=== PATIENT | male | born 1945 | race American Indian/Alaskan Native ===

== ENCOUNTER 2018-04-04 05:55 | Inpatient (IN) | payer MEDICARE, OTHER ==
[2018-03-30 09:48] LABS: Eosinophils % (Auto) 1.2 % (0.0-4.3); Hematocrit 45.4 % (35.5-45.6); Lymphocytes # (Auto) 1.4 K/mm3 (1.2-5.4); Lymphocytes % (Auto) 34.2 % (13.4-35.0); Mean Corpuscular HGB Conc 33 % (32-34); Mean Corpuscular Volume 84 fl (84-94); Monocytes # (Auto) 0.4 K/mm3 (0.0-0.8); Monocytes % (Auto) 9.8 % (0.0-7.3); Platelet Count 181 K/mm3 (140-440); Red Blood Count 5.38 M/mm3 (3.65-5.03); Red Cell Distribution Width 13.7 % (13.2-15.2)
[2018-03-30 09:58] LABS: INR 0.81 (0.87-1.13)
[2018-03-30 09:59] LABS: Partial Thromboplastin Time 27.5 Sec. (24.2-36.6)
[2018-03-30 10:06] LABS: Alanine Aminotransferase 29 units/L (7-56); Albumin 4.2 g/dL (3.9-5); BUN/Creatinine Ratio 13; Blood Urea Nitrogen 13 mg/dL (9-20); Calcium 8.8 mg/dL (8.4-10.2); Hemolysis Index 39
[~2018-04-04 05:55] MED LIST: ANCEF/STERILE WATER 2 GM/20 ML IV NR
[2018-04-04] MEDS ORDERED: NACL 0.9% 1000 ML 1,000 ML ONE ×2 (06:10→13:18)
[2018-04-04] MEDS ORDERED: NACL BACTERIOSTATIC INFILTRATI ONE (06:10)
[2018-04-04] MEDS ORDERED: NACL 0.9% 1000 ML 1,000 ML IV SCH (07:00)
[2018-04-04] MEDS ORDERED: SUBLIMAZE IV NR (07:02)
--- NOTE | 2018-04-04 07:11 | Anesthesia Day of Surgery ---
Anesthesia Day of Surgery - Day of Surgery Patient Examined: Yes Patient H&P Reviewed: Yes Patient is NPO: Yes
--- NOTE | 2018-04-04 07:11 | Anesthesia Consultation ---
Anesthesia Consult and Med Hx Date of service: 04/04/18 - Airway Anesthetic Teeth Evaluation: Good ROM Head & Neck: Adequate Mental/Hyoid Distance: Adequate Mallampati Class: Class II Intubation Access Assessment: Good - Pulmonary Exam CTA: Yes - Cardiac Exam Cardiac Exam: No Murmur - Pre-Operative Health Status ASA Pre-Surgery Classification: ASA3 Proposed Anesthetic Plan: General Nerve Block: TAP - Pulmonary Hx Smoking: Yes (STOPPED 1972 , SMOKED X 10 YRS) Hx Sleep Apnea: No (REBEKA PRE SCREEN HIGH RISK) - Cardiovascular System Hx Hypertension: Yes - Central Nervous System Hx Back Pain: Yes - Endocrine Hx Non-Insulin Dependent Diabetes: Yes
[2018-04-04] MEDS ORDERED: DILAUDID ONE (07:27)
[2018-04-04] MEDS ORDERED: DIPRIVAN 10 MG/ML IV ONE (07:27)
[2018-04-04] MEDS ORDERED: ZEMURON IV ONE (07:30)
[2018-04-04] MEDS ORDERED: XYLOCAINE MPF 2% ONE (07:30)
[2018-04-04] MEDS ORDERED: MARCAINE-EPI 0.5%-1:200,000 INFILTRATI ONE (07:37)
[2018-04-04] MEDS ORDERED: DECADRON ONE (07:38)
[2018-04-04] MEDS ORDERED: XYLOCAINE 1% 20 mL ONE (07:38)
[2018-04-04] MEDS ORDERED: CALCIUM CHLORIDE IV ONE (07:56)
[2018-04-04] MEDS ORDERED: THROMBIN (BOVINE) TP ONE (07:56)
[2018-04-04] MEDS ORDERED: ACD-A 500 ML IV ONE (07:56)
[2018-04-04] MEDS ORDERED: VERSED IV NR (08:00)
[2018-04-04] MEDS ORDERED: PEPCID IV NR (08:00)
[2018-04-04] MEDS ORDERED: NEURONTIN PO NR (08:00)
[2018-04-04] MEDS ORDERED: METHYLENE BLUE ONE (09:44)
[2018-04-04] MEDS ORDERED: ZOFRAN ONE (10:36)
[2018-04-04] MEDS ORDERED: NEO SYNEPHRINE/NS Syringe(OR USE) IV ONE (10:36)
[2018-04-04] MEDS ORDERED: ROBINUL ONE (10:36)
[2018-04-04] MEDS ORDERED: BLOXIVERZ ONE (10:36)
[2018-04-04] MEDS ORDERED: ADRENALIN IV PRN (11:00)
[2018-04-04] MEDS ORDERED: D50W (25GM) Syringe IV PRN ×2 (12:00→19:37)
[2018-04-04] MEDS ORDERED: ZOFRAN IV PRN (12:00)
[2018-04-04] MEDS ORDERED: AMBIEN PO PRN (12:00)
[2018-04-04] MEDS ORDERED: NARCAN 0.4 MG/1 ML IV PRN (12:00)
[2018-04-04] MEDS ORDERED: MORPHINE IV PRN (12:00)
[2018-04-04] MEDS ORDERED: NORCO 5/325 PO PRN (12:00)
--- NOTE | 2018-04-04 12:00 | Short Stay Summary ---
Short Stay Documentation Date of service: 04/04/18 - History H&P: obtained from office - Allergies and Medications Current Medications: Allergies BEE STINGS Adverse Reaction (Uncoded 02/07/18 08:28) Shortness of Breath Home Medications Medication Instructions Recorded Confirmed Last Taken Type EPINEPHrine 1 dose SUB-Q PRN PRN 03/23/18 03/23/18 Unknown History Empagliflozin [Jardiance] 25 mg PO DAILY 03/23/18 04/04/18 04/02/18 21:00 History Losartan Potassium 100 mg PO DAILY 03/23/18 04/04/18 04/02/18 21:00 History amLODIPine [Norvasc] 10 mg PO DAILY 03/23/18 04/04/18 04/02/18 21:00 History metFORMIN XR [Glucophage XR] 500 mg PO DAILY 03/23/18 04/04/18 04/02/18 21:00 History Active Medications Cefazolin Sodium (Ancef/Sterile Water 2 Gm/20 Ml) 2 gm IV PREOP NR Stop: 04/04/18 23:59 Celecoxib (Celebrex) 200 mg PO PREOP NR Stop: 04/04/18 15:00 Last Admin: 04/04/18 07:40 Dose: 200 mg Documented by: Famotidine (Pepcid) 20 mg IV PREOP NR Stop: 04/04/18 15:00 Last Admin: 04/04/18 07:30 Dose: 20 mg Documented by: Fentanyl (Sublimaze) 100 mcg IV ONCE NR Stop: 04/04/18 15:00 Last Admin: 04/04/18 07:43 Dose: 50 mcg Documented by: Gabapentin (Neurontin) 600 mg PO PREOP NR Stop: 04/04/18 15:00 Last Admin: 04/04/18 07:40 Dose: 600 mg Documented by: Sodium Chloride (Nacl 0.9% 1000 Ml) 1,000 mls @ 75 mls/hr IV DIRECT [facility] Last Admin: 04/04/18 06:50 Dose: 75 mls/hr Documented by: Midazolam HCl (Versed) 2 mg IV PREOP NR Stop: 04/04/18 23:59 Last Admin: 04/04/18 07:43 Dose: 2 mg Documented by: - Brief post op/procedure progress note Date of procedure: 04/04/18 Pre-op diagnosis: prostate ca Post-op diagnosis: same Procedure: robotic prostatectomy Anesthesia: SONIAA Surgeon: INESSA ANDERSON Estimated blood loss: other (500cc) Pathology: list (prostate) Specimen disposition: to lab Condition: stable - Hospital course Hospital course: bactrim,norco,post op info on chart maciol removed resting well ok to dc home if ok with hospitalist service f/u 1 wwk - Disposition Condition at discharge: Stable Short Stay Discharge Plan Follow up with: PANCHO PRADO JR, MD [Primary Care Provider] - 7 Days
[2018-04-04] MEDS ORDERED: EPINEPHRINE SUB-Q PRN (12:06)
--- NOTE | 2018-04-04 12:51 | Operative Report ---
PREOPERATIVE DIAGNOSES: Prostate cancer, Dodie 3+4, PSA 25. POSTOPERATIVE DIAGNOSES: Prostate cancer, Dodie 3+4, PSA 25. PROCEDURE: Robotic-assisted laparoscopic prostatectomy. SURGEON: Harvinder Subramanian MD ANESTHESIA: General. PROJECT/PRODUCTION MANAGER IMAGING: Sangeeta Ball. ESTIMATED BLOOD LOSS: 500 mL. FLUIDS: Crystalloid plus Cell Saver 250. DRAINS: Jass-Ramirez drain x 1. COMPLICATIONS: No complications. INDICATIONS: This patient is a 72-year-old gentleman referred by Dr. Baltazar Stoll for evaluation of an elevated PSA of 17. Initial biopsy was negative in 2017. It went up to a PSA of 25, fusion biopsy with Dr. Hernandez revealed a 3+4 adenocarcinoma of the prostate, 5 of 12 cores. Bone scan, CT scan was negative. We discussed options. The patient agreed to proceed with surgical intervention. DESCRIPTION OF PROCEDURE: The patient was taken to the operative suite, placed in a supine position. After adequate general anesthesia, he was prepped and draped in a sterile fashion. Andino catheter was placed on the operative field, was placed in a modified dorsal lithotomy position. Supraumbilical 1 cm incision was made. Towel clips were placed. Veress needle was placed. Drop test was performed, which was negative. CO2 insufflation was performed after opening pressure of 2 cm of water. Insufflation to 15 cm of water was performed without difficulty. Abdominal wall was marked from the pubic symphysis 15 cm cephalad, 9 cm lateral, additional 9 cm lateral was used for the robotic ports. A 0-degree lens was used and placed under direct vision at the supraumbilical incision. No signs of intraabdominal injury, no signs of spread. Under direct vision, the robotic ports were placed, 8 mm robotic ports on the left side and the right side as well as right-sided 10 mm helper port and a 5 mm helper port. The patient was then placed in exaggerated Trendelenburg position. Robotic cart was docked between the legs without difficulty. Robotic arms were engaged. The patient had adhesions on the left side of the colon, which was taken down without difficulty. He had a significant amount of adipose tissue, we had to use a fan to retract the rectum. Second arch was scored posteriorly exposing the seminal vesicles and vas deferens. Dissection to the apex of the prostate was performed without difficulty. The vas deferens were transected bilaterally. Seminal vesicles were dissected out. Attention was then taken to the abdominal wall, lateral to the abdominal wall was scored with cautery, dropped in the bladder flap and the flap exposed the pubic rami. Dorsal vein complex was controlled with a 45 mm stapler. It was bulky and had difficult to get the fat off and therefore it had to be oversewn with 2-0 Vicryl in a [id number] fashion with adequate hemostasis. Endopelvic fascia was opened bilaterally without difficulty. Anterior bladder neck was transected exposing the Andino catheter, was deflated and used for anterior traction. Posterior bladder neck was dissected, also indigo carmine was administered intravenously to help identify the ureteral orifices, which were uninjured. So, the seminal vesicles and vas deferens were pulled out anteriorly. Lateral pedicles were identified. A 65 mm vascular stapler was fired bilaterally for control of the lateral pedicles. Dissection was taken to the apex of the prostate and then the urethra was transected distally. Prostate was removed from the pelvis and placed in the EndoCatch bag and retracted laterally. Copious irrigation was performed. Adequate hemostasis achieved. A 12 o'clock helper stitch using 2-0 Vicryl at 12 o'clock position of the bladder neck. bladder neck reconstruction at the 5 and 7 o'clock positions using 2-0 Vicryl in interrupted fashion. A V-Loc stitch was placed at the 6 o'clock position of the bladder neck corresponding aspect of the urethra running stitch bilaterally was performed. A new Andino catheter was placed without difficulty into the bladder. Anastomotic stitch was cinched down, irrigation, minimal clot in the bladder, no leak. V-Loc stitch was then placed at the posterior aspect of the abdominal wall to aid with incontinence. Copious irrigation was performed. Adequate hemostasis achieved. Platelet rich plasma and platelet poor plasma was injected around the anastomosis, plasma membrane was also placed directly on the anastomosis. Jass-Ramirez drain was brought out through the left-sided port, secured into the skin with 2-0 Vicryl in interrupted fashion. The ports were removed under direct vision. The EndoCatch bag was transferred to the supraumbilical incision which was extended to allow removal. A 0 Vicryl [id number] stitch was placed and the supraumbilical incision was closed. No herniation. Skin was closed with 4-0 Monocryl in interrupted fashion. A Andino catheter was folded over and tied to the side port to prevent removal. The patient was extubated and taken to the recovery room in stable condition, will be observed overnight and go home with Bactrim and [place]. Sangeeta Ball was present throughout the procedure at the bedside to facilitate surgical dissection. JOB# [id number] JULEE/NTS
[2018-04-04 13:23] LABS: Hematocrit 39.1 % (35.5-45.6); Hemoglobin 12.9 gm/dl (11.8-15.2); Mean Corpuscular HGB Conc 33 % (32-34); Mean Corpuscular Volume 85 fl (84-94); Platelet Count 168 K/mm3 (140-440); Red Blood Count 4.61 M/mm3 (3.65-5.03); Red Cell Distribution Width 13.4 % (13.2-15.2)
[2018-04-04 13:38] LABS: BUN/Creatinine Ratio 13; Blood Urea Nitrogen 13 mg/dL (9-20); Calcium 7.5 mg/dL (8.4-10.2); Hemolysis Index 5
[2018-04-04 14:38] LABS: Band Neutrophils # (Manual) 1.1 K/mm3; Basophils % (Manual) 0 % (0.0-1.8); Eosinophils % (Manual) 0 % (0.0-4.3); RBC Morphology Normal; Total Cells Counted 100
[2018-04-04] MEDS: ANCEF/NS 1 GM/50 ML 1 GM/50 ML BAG IV SCH ×2 (15:15→21:30)
[2018-04-04] MEDS: NACL 0.9% 1000 ML 1,000 ML IV SCH ×2 (15:16→18:24)
[2018-04-04] MEDS ORDERED: HumuLIN R SUB-Q SCH (16:30)
--- NOTE | 2018-04-04 19:27 | Consultation ---
History of Present Illness - Reason for Consult Consult date: 04/04/18 Diabetes, HTN Requesting physician: INESSA SUBRAMANIAN - History of Present Illness 72 YO Male with Obesity, CaP, HTN, DM. Consult placed by Dr. Subramanian for medical management. Pt is S/P Prostatectomy. Pt resting comfortably in bed. Pt denies fever, chills, CP, Palpitations, NVD, Shortness of Breath, skin rash, or recent ill contacts. No reported nursing events. Pt seen and evaluated postoperatively upon arrival to his room. Past History Past Medical History: cancer, diabetes, hypertension Past Surgical History: Other (Prostatectomy) Social history: , lives with family. denies: smoking, alcohol abuse, prescription drug abuse Family history: diabetes, hypertension Medications and Allergies Allergies Allergy/AdvReac Type Severity Reaction Status Date / Time BEE STINGS AdvReac Shortness Uncoded 02/07/18 08:28 of Breath Home Medications Medication Instructions Recorded Confirmed Last Taken Type EPINEPHrine 1 dose SUB-Q PRN PRN 03/23/18 03/23/18 Unknown History Empagliflozin [Jardiance] 25 mg PO DAILY 03/23/18 04/04/18 04/02/18 21:00 History Losartan Potassium 100 mg PO DAILY 03/23/18 04/04/18 04/02/18 21:00 History amLODIPine [Norvasc] 10 mg PO DAILY 03/23/18 04/04/18 04/02/18 21:00 History metFORMIN XR [Glucophage XR] 500 mg PO DAILY 03/23/18 04/04/18 04/02/18 21:00 History Active Meds: Active Medications Acetaminophen/Hydrocodone Bitart ([place]edham 5/325) 2 each PO Q4H PRN PRN Reason: Pain, Moderate (4-6) Amlodipine Besylate (Norvasc) 10 mg PO DAILY [facility] Cefazolin Sodium (Ancef/Sterile Water 2 Gm/20 Ml) 2 gm IV PREOP NR Stop: 04/04/18 23:59 Dextrose (D50w (25gm) Syringe) 50 ml IV PRN PRN PRN Reason: Hypoglycemia Epinephrine (Adrenalin) 1 mg IV PRN PRN PRN Reason: Res Rate </= 8 or 02 SAT < 92% Stop: 04/04/18 23:59 Sodium Chloride (Nacl 0.9% 1000 Ml) 1,000 mls @ 75 mls/hr IV DIRECT SADAF Last Admin: 04/04/18 06:50 Dose: 75 mls/hr Documented by: Cefazolin Sodium (Ancef/Ns 1 Gm/50 Ml) 1 gm in 50 mls @ 100 mls/hr IV Q8H SAD[facility]; Protocol Stop: 04/04/18 22:29 Last Admin: 04/04/18 15:15 Dose: 100 mls/hr Documented by: Sodium Chloride (Nacl 0.9% 1000 Ml) 1,000 mls @ 100 mls/hr IV DIRECT SADAF Last Admin: 04/04/18 18:24 Dose: 100 mls/hr Documented by: Insulin Human Regular (Humulin R) 0 units SUB-Q ACHS SAD[facility]; Protocol Last Admin: 04/04/18 18:23 Dose: 3 units Documented by: Losartan Potassium (Cozaar) 100 mg PO QDAY [facility] Metformin HCl (Glucophage Xr) 500 mg PO DAILY [facility] Midazolam HCl (Versed) 2 mg IV PREOP NR Stop: 04/04/18 23:59 Last Admin: 04/04/18 07:43 Dose: 2 mg Documented by: Miscellaneous Medication (Empagliflozin [Jardiance]) 25 mg PO DAILY [facility] Morphine Sulfate (Morphine) 4 mg IV Q4H PRN PRN Reason: Pain , Severe (7-10) Naloxone HCl (Narcan 0.4 Mg/1 Ml) 0.1 mg IV Q2MIN PRN PRN Reason: Res Rate </= 8 or 02 SAT < 92% Ondansetron HCl (Zofran) 4 mg IV Q8H PRN PRN Reason: Nausea And Vomiting Zolpidem Tartrate (Ambien) 5 mg PO QHS PRN PRN Reason: Sleep Review of Systems Constitutional: no weight loss, no chills Ears, nose, mouth and throat: no ear pain, no ear discharge, no tinnitis, no decreased hearing Cardiovascular: no chest pain, no orthopnea, no palpitations, no rapid/irregular heart beat Respiratory: no cough, no cough with sputum, no excessive sputum, no hemoptysis Gastrointestinal: diarrhea, no abdominal pain, no nausea, no vomiting Genitourinary Male: no dysuria, no flank pain, no nocturia Rectal: no pain, no hemorrhoids Musculoskeletal: no neck stiffness, no neck pain, no shooting arm pain, no hot joints Integumentary: no rash, no redness, no wounds, no boils Neurological: no head injury, no paralysis, no parathesias, no tingling, no syncope Psychiatric: no anxiety, no change in sleep habits, no insomnia, no change in appetite, no suicidal ideation Endocrine: no cold intolerance, no polyphagia, no polydipsia Hematologic/Lymphatic: no easy bruising, no easy bleeding, no lymphadenopathy Allergic/Immunologic: no urticaria, no allergic rhinitis, no wheezing Exam - Constitutional Vitals: Temp Pulse Resp BP Pulse Ox 97.4 F L 100 H 18 93/57 99 04/04/18 15:13 04/04/18 18:26 04/04/18 18:26 04/04/18 18:26 04/04/18 15:13 General appearance: Present: no acute distress, well-nourished - EENT Eyes: Present: PERRL ENT: hearing intact, clear oral mucosa - Neck Neck: Present: supple, normal ROM - Respiratory Respiratory effort: normal Respiratory: bilateral: CTA - Cardiovascular Heart Sounds: Present: S1 & S2. Absent: rub, click - Extremities Extremities: pulses symmetrical, No edema Peripheral Pulses: within normal limits - Abdominal General gastrointestinal: Present: soft, non-tender, non-distended, normal bowel sounds Male genitourinary: Present: normal - Integumentary Integumentary: Present: clear, warm, dry - Musculoskeletal Musculoskeletal: gait normal, strength equal bilaterally - Psychiatric Psychiatric: appropriate mood/affect, intact judgment & insight - Neurologic Neurologic: CNII-XII intact, moves all extremities Results - Labs CBC & Chem 7: 04/05/18 04:14 04/05/18 04:14 Labs: Abnormal lab results 04/04/18 04/04/18 04/04/18 Range/Units 06:43 12:32 13:11 Seg Neuts % (Manual) 81.0 H (40.0-70.0) % Lymphocytes % (Manual) 6.0 L (13.4-35.0) % Seg Neutrophils # Man 8.7 H (1.8-7.7) K/mm3 Lymphocytes # (Manual) 0.6 L (1.2-5.4) K/mm3 Chloride (98-107) mmol/L Glucose (75-100) mg/dL POC Glucose 125 H 165 H (70-105) Calcium (8.4-10.2) mg/dL 04/04/18 04/04/18 Range/Units 13:11 17:39 Seg Neuts % (Manual) (40.0-70.0) % Lymphocytes % (Manual) (13.4-35.0) % Seg Neutrophils # Man (1.8-7.7) K/mm3 Lymphocytes # (Manual) (1.2-5.4) K/mm3 Chloride 108.0 H (98-107) mmol/L Glucose 176 H (75-100) mg/dL POC Glucose 234 H (70-105) Calcium 7.5 L (8.4-10.2) mg/dL Assessment and Plan - Patient Problems (1) HTN (hypertension) Current Visit: Yes Status: Acute Qualifiers: Hypertension type: essential hypertension Qualified Code(s): I10 - Essential (primary) hypertension Plan to address problem: Pt hypotensive upon exam. Systolic in the upper 90's. Hold Antihypertensive therapy for now. IV hydralazine prn for systolic above 155, monitor bp q shift, IVF resuscitation therapy. (2) Diabetes Current Visit: Yes Status: Acute Plan to address problem: Consistent carbohydrate diet, Sliding scale insulin, hold oral medication at this time.
[2018-04-04] MEDS ORDERED: APRESOLINE IV PRN (19:38)
[2018-04-04] MEDS ORDERED: NACL 0.9% 1000 ML 1,000 ML IV ONE (20:35)
[2018-04-05] MEDS: HumaLOG SUB-Q SCH ×5 (02:54→22:36)
[2018-04-05 04:40] LABS: Basophils % (Auto) 0.2 % (0.0-1.8); Hematocrit 30.6 % (35.5-45.6); Hemoglobin 10.2 gm/dl (11.8-15.2); Lymphocytes % (Auto) 18.1 % (13.4-35.0); Mean Corpuscular HGB Conc 33 % (32-34); Mean Corpuscular Volume 84 fl (84-94); Monocytes # (Auto) 0.6 K/mm3 (0.0-0.8); Monocytes % (Auto) 10.1 % (0.0-7.3); Platelet Count 155 K/mm3 (140-440); Red Blood Count 3.64 M/mm3 (3.65-5.03); Red Cell Distribution Width 13.6 % (13.2-15.2)
[2018-04-05 05:02] LABS: BUN/Creatinine Ratio 18; Blood Urea Nitrogen 22 mg/dL (9-20); Calcium 6.9 mg/dL (8.4-10.2); Hemolysis Index 4
[2018-04-05] MEDS: NACL 0.9% 1000 ML 1,000 ML IV SCH ×2 (05:45→12:45)
[2018-04-05] MEDS: NORVASC PO SCH (09:00)
[2018-04-05] MEDS ORDERED: NON-FORMULARY (Losartan Potassium [Losartan Potassium] 100 MG) PO SCH (10:00)
[2018-04-05] MEDS ORDERED: EMPAGLIFLOZIN 25 MG PO SCH (10:00)
[2018-04-05] MEDS ORDERED: GLUCOPHAGE XR PO SCH (10:00)
[2018-04-05] MEDS ORDERED: COZAAR PO SCH (10:00)
--- NOTE | 2018-04-05 15:46 | Progress Note ---
Assessment and Plan Assessment and plan: 72 YO Male with Obesity, CaP, HTN, DM. Consult placed by Dr. Subramanian for medical management. Pt is S/P Prostatectomy. Pt resting comfortably in bed. Pt denies fever, chills, CP, Palpitations, NVD, Shortness of Breath, skin rash, or recent ill contacts. No reported nursing events. Pt seen and evaluated postoperatively upon arrival to his room. Diabetes mellitus - On sliding scale insulin - We will monitor Hypotension - asymptomatic - We'll give him bolus of normal saline - We'll monitor BP If BP is within normal limit; patient can go home. Advised to stop taking blood pressure medications. Status post prostatectomy; management per urology Disposition; per primary, after BP is stabilized. History Interval history: Patient was seen and evaluated this morning, patient didn't have any complaints. Hospitalist Physical - Physical exam Narrative exam: Not in cardiopulmonary distress. The patient is obese. Vital signs as documented. Head exam is unremarkable. No scleral icterus . Neck is without jugular venous distension, thyromegaly, or carotid bruits. Lungs are clear to auscultation. Cardiac exam reveals regular rate and Rhythm. Abdominal exam reveals normal bowel sounds. Extremities are nonedematous and both femoral and pedal pulses are normal. COLLECTIONS SPECIALIST: Alert and oriented 3. No focal weakness. - Constitutional Vitals: Temp Pulse Resp BP Pulse Ox 97.9 F 91 H 18 96/43 98 04/05/18 11:22 04/05/18 11:22 04/05/18 11:22 04/05/18 11:22 04/05/18 11:22 General appearance: Present: no acute distress, well-nourished Results - Labs CBC & Chem 7: 04/05/18 04:14 04/05/18 04:14 Labs: Laboratory Last Values WBC 5.7 K/mm3 (4.5-11.0) 04/05/18 04:14 RBC 3.64 M/mm3 (3.65-5.03) L 04/05/18 04:14 Hgb 10.2 gm/dl (11.8-15.2) L 04/05/18 04:14 Hct 30.6 % (35.5-45.6) L D 04/05/18 04:14 MCV 84 fl (84-94) 04/05/18 04:14 MCH 28 pg (28-32) 04/05/18 04:14 MCHC 33 % (32-34) 04/05/18 04:14 RDW 13.6 % (13.2-15.2) 04/05/18 04:14 Plt Count 155 K/mm3 (140-440) 04/05/18 04:14 Lymph % (Auto) 18.1 % (13.4-35.0) 04/05/18 04:14 Mclean % (Auto) 10.1 % (0.0-7.3) H 04/05/18 04:14 Eos % (Auto) 0.0 % (0.0-4.3) 04/05/18 04:14 Baso % (Auto) 0.2 % (0.0-1.8) 04/05/18 04:14 Lymph # 1.0 K/mm3 (1.2-5.4) L 04/05/18 04:14 Mclean # 0.6 K/mm3 (0.0-0.8) 04/05/18 04:14 Eos # 0.0 K/mm3 (0.0-0.4) 04/05/18 04:14 Baso # 0.0 K/mm3 (0.0-0.1) 04/05/18 04:14 Add Manual Diff Complete 04/04/18 13:11 Total Counted 100 04/04/18 13:11 Seg Neutrophils % 71.6 % (40.0-70.0) H 04/05/18 04:14 Seg Neuts % (Manual) 81.0 % (40.0-70.0) H 04/04/18 13:11 Band Neutrophils % 10.0 % 04/04/18 13:11 Lymphocytes % (Manual) 6.0 % (13.4-35.0) L 04/04/18 13:11 Reactive Lymphs % (Man) 0 % 04/04/18 13:11 Monocytes % (Manual) 3.0 % (0.0-7.3) 04/04/18 13:11 Eosinophils % (Manual) 0 % (0.0-4.3) 04/04/18 13:11 Basophils % (Manual) 0 % (0.0-1.8) 04/04/18 13:11 Metamyelocytes % 0 % 04/04/18 13:11 Myelocytes % 0 % 04/04/18 13:11 Promyelocytes % 0 % 04/04/18 13:11 Blast Cells % 0 % 04/04/18 13:11 Nucleated RBC % Not Reportable 04/04/18 13:11 Seg Neutrophils # 4.1 K/mm3 (1.8-7.7) 04/05/18 04:14 Seg Neutrophils # Man 8.7 K/mm3 (1.8-7.7) H 04/04/18 13:11 Band Neutrophils # 1.1 K/mm3 04/04/18 13:11 Lymphocytes # (Manual) 0.6 K/mm3 (1.2-5.4) L 04/04/18 13:11 Abs React Lymphs (Man) 0.0 K/mm3 04/04/18 13:11 Monocytes # (Manual) 0.3 K/mm3 (0.0-0.8) 04/04/18 13:11 Eosinophils # (Manual) 0.0 K/mm3 (0.0-0.4) 04/04/18 13:11 Basophils # (Manual) 0.0 K/mm3 (0.0-0.1) 04/04/18 13:11 Metamyelocytes # 0.0 K/mm3 04/04/18 13:11 Myelocytes # 0.0 K/mm3 04/04/18 13:11 Promyelocytes # 0.0 K/mm3 04/04/18 13:11 Blast Cells # 0.0 K/mm3 04/04/18 13:11 WBC Morphology Not Reportable 04/04/18 13:11 Hypersegmented Neuts Not Reportable 04/04/18 13:11 Hyposegmented Neuts Not Reportable 04/04/18 13:11 Hypogranular Neuts Not Reportable 04/04/18 13:11 Smudge Cells Not Reportable 04/04/18 13:11 Toxic Granulation Not Reportable 04/04/18 13:11 Toxic Vacuolation Not Reportable 04/04/18 13:11 Dohle Bodies Not Reportable 04/04/18 13:11 Pelger-Huet Anomaly Not Reportable 04/04/18 13:11 Jaspal Rods Not Reportable 04/04/18 13:11 Platelet Estimate Not Reportable 04/04/18 13:11 Clumped Platelets Not Reportable 04/04/18 13:11 Plt Clumps, EDTA Not Reportable 04/04/18 13:11 Large Platelets Not Reportable 04/04/18 13:11 Giant Platelets Not Reportable 04/04/18 13:11 Platelet Satelliting Not Reportable 04/04/18 13:11 Plt Morphology Comment Not Reportable 04/04/18 13:11 RBC Morphology Normal 04/04/18 13:11 Dimorphic RBCs Not Reportable 04/04/18 13:11 Polychromasia Not Reportable 04/04/18 13:11 Hypochromasia Not Reportable 04/04/18 13:11 Poikilocytosis Not Reportable 04/04/18 13:11 Anisocytosis Not Reportable 04/04/18 13:11 Microcytosis Not Reportable 04/04/18 13:11 Macrocytosis Not Reportable 04/04/18 13:11 Spherocytes Not Reportable 04/04/18 13:11 Pappenheimer Bodies Not Reportable 04/04/18 13:11 Sickle Cells Not Reportable 04/04/18 13:11 Target Cells Not Reportable 04/04/18 13:11 Tear Drop Cells Not Reportable 04/04/18 13:11 Ovalocytes Not Reportable 04/04/18 13:11 Helmet Cells Not Reportable 04/04/18 13:11 [place] Bodies Not Reportable 04/04/18 13:11 [place] Rings Not Reportable 04/04/18 13:11 Volodymyr Cells Not Reportable 04/04/18 13:11 Bite Cells Not Reportable 04/04/18 13:11 Crenated Cell Not Reportable 04/04/18 13:11 Elliptocytes Not Reportable 04/04/18 13:11 Acanthocytes (Spur) Not Reportable 04/04/18 13:11 Rouleaux Not Reportable 04/04/18 13:11 Hemoglobin C Crystals Not Reportable 04/04/18 13:11 Schistocytes Not Reportable 04/04/18 13:11 Malaria parasites Not Reportable 04/04/18 13:11 Jesus Bodies Not Reportable 04/04/18 13:11 Hem Pathologist Commnt No 04/04/18 13:11 PT 11.6 Sec. (12.2-14.9) L 03/30/18 09:30 INR 0.81 (0.87-1.13) L 03/30/18 09:30 APTT 27.5 Sec. (24.2-36.6) 03/30/18 09:30 Sodium 134 mmol/L (137-145) L 04/05/18 04:14 Potassium 4.7 mmol/L (3.6-5.0) 04/05/18 04:14 Chloride 107.3 mmol/L (98-107) H 04/05/18 04:14 Carbon Dioxide 22 mmol/L (22-30) 04/05/18 04:14 Anion Gap 9 mmol/L 04/05/18 04:14 BUN 22 mg/dL (9-20) H 04/05/18 04:14 Creatinine 1.2 mg/dL (0.8-1.5) 04/05/18 04:14 Estimated GFR > 60 ml/min 04/05/18 04:14 BUN/Creatinine Ratio 18 % 04/05/18 04:14 Glucose 189 mg/dL (75-100) H 04/05/18 04:14 POC Glucose 256 (70-105) H 04/05/18 11:26 Calcium 6.9 mg/dL (8.4-10.2) L 04/05/18 04:14 Total Bilirubin 0.40 mg/dL (0.1-1.2) 03/30/18 09:30 AST 21 units/L (5-40) 03/30/18 09:30 ALT 29 units/L (7-56) 03/30/18 09:30 Alkaline Phosphatase 89 units/L (35-129) 03/30/18 09:30 Total Protein 7.3 g/dL (6.3-8.2) 03/30/18 09:30 Albumin 4.2 g/dL (3.9-5) 03/30/18 09:30 Albumin/Globulin Ratio 1.4 % 03/30/18 09:30 Blood Type O POSITIVE 04/04/18 06:35 Antibody Screen Negative 04/04/18 06:35
[2018-04-05] MEDS ORDERED: NACL 0.9% 1000 ML 1,000 ML IV SCH (17:00)
[2018-04-06] MEDS: NORVASC PO SCH (09:40)
[2018-04-06 12:18] VITALS: BP 143/78
[2018-04-06] MEDS ORDERED: NACL 0.9% 0 ML IR ONE (14:46)
--- NOTE | 2018-04-06 15:19 | Progress Note ---
Assessment and Plan Assessment and plan: 72 YO Male with Obesity, CaP, HTN, DM. Consult placed by Dr. Subramanian for medical management. Pt is S/P Prostatectomy. Pt resting comfortably in bed. Pt denies fever, chills, CP, Palpitations, NVD, Shortness of Breath, skin rash, or recent ill contacts. No reported nursing events. Pt seen and evaluated postoperatively upon arrival to his room. Diabetes mellitus - On sliding scale insulin - We will monitor Hypotension - asymptomatic - We'll give him bolus of normal saline - We'll monitor BP If BP is within normal limit; patient can go home. Advised to stop taking blood pressure medications. Status post prostatectomy; management per urology Disposition; per primary, medically he is cleared for discharge. History Interval history: Patient was seen and evaluated this morning, patient didn't have any complaints. No dizziness. Hospitalist Physical - Physical exam Narrative exam: Not in cardiopulmonary distress. The patient is obese. Vital signs as documented. Head exam is unremarkable. No scleral icterus . Neck is without jugular venous distension, thyromegaly, or carotid bruits. Lungs are clear to auscultation. Cardiac exam reveals regular rate and Rhythm. Abdominal exam reveals normal bowel sounds. Extremities are nonedematous and both femoral and pedal pulses are normal. [facility]: Alert and oriented 3. No focal weakness. - Constitutional Vitals: Temp Pulse Resp BP Pulse Ox 98.1 F 91 H 20 143/78 99 04/06/18 12:09 04/06/18 12:09 04/06/18 12:09 04/06/18 12:09 04/06/18 12:09 General appearance: Present: no acute distress, well-nourished Results - Labs CBC & Chem 7: 04/05/18 04:14 04/05/18 04:14 Labs: Laboratory Last Values WBC 5.7 K/mm3 (4.5-11.0) 04/05/18 04:14 RBC 3.64 M/mm3 (3.65-5.03) L 04/05/18 04:14 Hgb 10.2 gm/dl (11.8-15.2) L 04/05/18 04:14 Hct 30.6 % (35.5-45.6) L D 04/05/18 04:14 MCV 84 fl (84-94) 04/05/18 04:14 MCH 28 pg (28-32) 04/05/18 04:14 MCHC 33 % (32-34) 04/05/18 04:14 RDW 13.6 % (13.2-15.2) 04/05/18 04:14 Plt Count 155 K/mm3 (140-440) 04/05/18 04:14 Lymph % (Auto) 18.1 % (13.4-35.0) 04/05/18 04:14 Iron % (Auto) 10.1 % (0.0-7.3) H 04/05/18 04:14 Eos % (Auto) 0.0 % (0.0-4.3) 04/05/18 04:14 Baso % (Auto) 0.2 % (0.0-1.8) 04/05/18 04:14 Lymph # 1.0 K/mm3 (1.2-5.4) L 04/05/18 04:14 Iron # 0.6 K/mm3 (0.0-0.8) 04/05/18 04:14 Eos # 0.0 K/mm3 (0.0-0.4) 04/05/18 04:14 Baso # 0.0 K/mm3 (0.0-0.1) 04/05/18 04:14 Add Manual Diff Complete 04/04/18 13:11 Total Counted 100 04/04/18 13:11 Seg Neutrophils % 71.6 % (40.0-70.0) H 04/05/18 04:14 Seg Neuts % (Manual) 81.0 % (40.0-70.0) H 04/04/18 13:11 Band Neutrophils % 10.0 % 04/04/18 13:11 Lymphocytes % (Manual) 6.0 % (13.4-35.0) L 04/04/18 13:11 Reactive Lymphs % (Man) 0 % 04/04/18 13:11 Monocytes % (Manual) 3.0 % (0.0-7.3) 04/04/18 13:11 Eosinophils % (Manual) 0 % (0.0-4.3) 04/04/18 13:11 Basophils % (Manual) 0 % (0.0-1.8) 04/04/18 13:11 Metamyelocytes % 0 % 04/04/18 13:11 Myelocytes % 0 % 04/04/18 13:11 Promyelocytes % 0 % 04/04/18 13:11 Blast Cells % 0 % 04/04/18 13:11 Nucleated RBC % Not Reportable 04/04/18 13:11 Seg Neutrophils # 4.1 K/mm3 (1.8-7.7) 04/05/18 04:14 Seg Neutrophils # Man 8.7 K/mm3 (1.8-7.7) H 04/04/18 13:11 Band Neutrophils # 1.1 K/mm3 04/04/18 13:11 Lymphocytes # (Manual) 0.6 K/mm3 (1.2-5.4) L 04/04/18 13:11 Abs React Lymphs (Man) 0.0 K/mm3 04/04/18 13:11 Monocytes # (Manual) 0.3 K/mm3 (0.0-0.8) 04/04/18 13:11 Eosinophils # (Manual) 0.0 K/mm3 (0.0-0.4) 04/04/18 13:11 Basophils # (Manual) 0.0 K/mm3 (0.0-0.1) 04/04/18 13:11 Metamyelocytes # 0.0 K/mm3 04/04/18 13:11 Myelocytes # 0.0 K/mm3 04/04/18 13:11 Promyelocytes # 0.0 K/mm3 04/04/18 13:11 Blast Cells # 0.0 K/mm3 04/04/18 13:11 WBC Morphology Not Reportable 04/04/18 13:11 Hypersegmented Neuts Not Reportable 04/04/18 13:11 Hyposegmented Neuts Not Reportable 04/04/18 13:11 Hypogranular Neuts Not Reportable 04/04/18 13:11 Smudge Cells Not Reportable 04/04/18 13:11 Toxic Granulation Not Reportable 04/04/18 13:11 Toxic Vacuolation Not Reportable 04/04/18 13:11 Dohle Bodies Not Reportable 04/04/18 13:11 Pelger-Huet Anomaly Not Reportable 04/04/18 13:11 Jaspal Rods Not Reportable 04/04/18 13:11 Platelet Estimate Not Reportable 04/04/18 13:11 Clumped Platelets Not Reportable 04/04/18 13:11 Plt Clumps, EDTA Not Reportable 04/04/18 13:11 Large Platelets Not Reportable 04/04/18 13:11 Giant Platelets Not Reportable 04/04/18 13:11 Platelet Satelliting Not Reportable 04/04/18 13:11 Plt Morphology Comment Not Reportable 04/04/18 13:11 RBC Morphology Normal 04/04/18 13:11 Dimorphic RBCs Not Reportable 04/04/18 13:11 Polychromasia Not Reportable 04/04/18 13:11 Hypochromasia Not Reportable 04/04/18 13:11 Poikilocytosis Not Reportable 04/04/18 13:11 Anisocytosis Not Reportable 04/04/18 13:11 Microcytosis Not Reportable 04/04/18 13:11 Macrocytosis Not Reportable 04/04/18 13:11 Spherocytes Not Reportable 04/04/18 13:11 Pappenheimer Bodies Not Reportable 04/04/18 13:11 Sickle Cells Not Reportable 04/04/18 13:11 Target Cells Not Reportable 04/04/18 13:11 Tear Drop Cells Not Reportable 04/04/18 13:11 Ovalocytes Not Reportable 04/04/18 13:11 Helmet Cells Not Reportable 04/04/18 13:11 [place] Bodies Not Reportable 04/04/18 13:11 [place] Rings Not Reportable 04/04/18 13:11 Volodymyr Cells Not Reportable 04/04/18 13:11 Bite Cells Not Reportable 04/04/18 13:11 Crenated Cell Not Reportable 04/04/18 13:11 Elliptocytes Not Reportable 04/04/18 13:11 Acanthocytes (Spur) Not Reportable 04/04/18 13:11 Rouleaux Not Reportable 04/04/18 13:11 Hemoglobin C Crystals Not Reportable 04/04/18 13:11 Schistocytes Not Reportable 04/04/18 13:11 Malaria parasites Not Reportable 04/04/18 13:11 Jesus Bodies Not Reportable 04/04/18 13:11 Hem Pathologist Commnt No 04/04/18 13:11 PT 11.6 Sec. (12.2-14.9) L 03/30/18 09:30 INR 0.81 (0.87-1.13) L 03/30/18 09:30 APTT 27.5 Sec. (24.2-36.6) 03/30/18 09:30 Sodium 134 mmol/L (137-145) L 04/05/18 04:14 Potassium 4.7 mmol/L (3.6-5.0) 04/05/18 04:14 Chloride 107.3 mmol/L (98-107) H 04/05/18 04:14 Carbon Dioxide 22 mmol/L (22-30) 04/05/18 04:14 Anion Gap 9 mmol/L 04/05/18 04:14 BUN 22 mg/dL (9-20) H 04/05/18 04:14 Creatinine 1.2 mg/dL (0.8-1.5) 04/05/18 04:14 Estimated GFR > 60 ml/min 04/05/18 04:14 BUN/Creatinine Ratio 18 % 04/05/18 04:14 Glucose 189 mg/dL (75-100) H 04/05/18 04:14 POC Glucose 199 (70-105) H 04/06/18 12:33 Calcium 6.9 mg/dL (8.4-10.2) L 04/05/18 04:14 Total Bilirubin 0.40 mg/dL (0.1-1.2) 03/30/18 09:30 AST 21 units/L (5-40) 03/30/18 09:30 ALT 29 units/L (7-56) 03/30/18 09:30 Alkaline Phosphatase 89 units/L (35-129) 03/30/18 09:30 Total Protein 7.3 g/dL (6.3-8.2) 03/30/18 09:30 Albumin 4.2 g/dL (3.9-5) 03/30/18 09:30 Albumin/Globulin Ratio 1.4 % 03/30/18 09:30 Blood Type O POSITIVE 04/04/18 06:35 Antibody Screen Negative 04/04/18 06:35
== END 2018-04-06 17:27 | disposition home or self-care (01) | DRG 708 ==
LOC: OR 05:55 → 3B-SURG 12:00 → OBSVTOIN 04-06 11:45
PROVIDERS: ADMIT Urology; ATTEND Urology
PROC: 0VT04ZZ Resection of Prostate, Percutaneous Endoscopic Approach (ICD-10-PCS; principal; 2018-04-04)
PROC: 8E0W4CZ Robotic Assisted Procedure of Trunk Region, Percutaneous Endoscopic Approach (ICD-10-PCS; 2018-04-04)
PROC: 0TBB4ZZ Excision of Bladder, Percutaneous Endoscopic Approach (ICD-10-PCS; 2018-04-04)
PROC: 0VT34ZZ Resection of Bilateral Seminal Vesicles, Percutaneous Endoscopic Approach (ICD-10-PCS; 2018-04-04)
PROC: 0VTQ4ZZ Resection of Bilateral Vas Deferens, Percutaneous Endoscopic Approach (ICD-10-PCS; 2018-04-04)
DX: C61 Malignant neoplasm of prostate (principal); E11.9 Type 2 diabetes mellitus without complications; I10 Essential (primary) hypertension; E66.9 Obesity, unspecified; Z79.84 Long term (current) use of oral hypoglycemic drugs; Z79.899 Other long term (current) drug therapy; Z91.030 Bee allergy status; Z68.34 Body mass index [BMI] 34.0-34.9, adult; Z82.49 Family history of ischemic heart disease and other diseases of the circulatory system; Z83.3 Family history of diabetes mellitus; Z87.891 Personal history of nicotine dependence; I95.9 Hypotension, unspecified
CPT/HCPCS: 36415; 64450; 80048; 80053; 82962; 85007; 85025; 85610; 85730; 86850; 86900; 86901; 88309; 88341; 88342; 94760; G0378; J0690; J0735; J1100; J1170; J1815; J2250; J2370; J2405; J2704; J2710; J3010; J7030; Q9968

== ENCOUNTER 2018-04-14 05:58 | Inpatient (IN) | payer MEDICARE, OTHER ==
[2018-04-14] MEDS ORDERED: ZOFRAN IV ONE (07:08)
[2018-04-14] MEDS ORDERED: DILAUDID IV ONE ×3 (07:08→09:03)
[2018-04-14] MEDS ORDERED: NACL 0.9% 500 ML 500 ML IV ONE (07:09)
[2018-04-14 07:16] LABS: Bacteria,Urine 4+ /HPF (Negative); Bilirubin,Urine NEG (Negative); Blood,Urine LG (Negative); Color,Urine Red (Yellow); Mucus,Urine FEW /HPF; Sperm,Urine FEW /HPF (NP); Urobilinogen,Urine < 2.0 mg/dL (<2.0)
[2018-04-14 07:17] LABS: RBC,Urine > 182.0 /HPF (0.0-6.0)
[2018-04-14 07:18] LABS: Basophils # (Auto) 0.1 K/mm3 (0.0-0.1); Basophils % (Auto) 0.8 % (0.0-1.8); Eosinophils % (Auto) 0.1 % (0.0-4.3); Hematocrit 32.9 % (35.5-45.6); Hemoglobin 10.6 gm/dl (11.8-15.2); Lymphocytes # (Auto) 0.9 K/mm3 (1.2-5.4); Lymphocytes % (Auto) 6.2 % (13.4-35.0); Mean Corpuscular HGB Conc 32 % (32-34); Mean Corpuscular Volume 85 fl (84-94); Monocytes # (Auto) 0.8 K/mm3 (0.0-0.8); Monocytes % (Auto) 5.4 % (0.0-7.3); Platelet Count 365 K/mm3 (140-440); Red Blood Count 3.87 M/mm3 (3.65-5.03); Red Cell Distribution Width 13.9 % (13.2-15.2)
[2018-04-14] MEDS ORDERED: ROCEPHIN/NS 1 GM/50 ML 1 GM/50 ML BAG IV ONE (07:23)
[2018-04-14] MEDS ORDERED: NACL 0.9% 1000 ML 1,000 ML ONE (07:29)
--- NOTE | 2018-04-14 07:29 | Emergency Department Report ---
ED Male HPI - General Chief complaint: Urogenital-Male Stated complaint: URINARY RETENTION Time Seen by Provider: 04/14/18 06:55 Source: patient, family Mode of arrival: Ambulatory Limitations: No Limitations - History of Present Illness Initial comments: 72-year-old male with a past medical history of arthritis, diabetes, GERD, hypertension, kidney stones, prostate cancer, and recent robotic prostatectomy performed on April [address] Subramanian presents to Hospital complaining of abdominal pain, distention, and inability to urinate 2 days. Patient states he has had very little dribbling urine output for the past 2 days with worsening abdominal pain and distention. Presents with pain rated 10/10 in intensity, constant, and worse with palpation. Nausea reported without vomiting or fever. - Related Data Home Medications Medication Instructions Recorded Confirmed Last Taken EPINEPHrine 1 dose SUB-Q PRN PRN 03/23/18 03/23/18 Unknown Empagliflozin [Jardiance] 25 mg PO DAILY 03/23/18 04/04/18 04/02/18 21:00 Losartan Potassium 100 mg PO DAILY 03/23/18 04/04/18 04/02/18 21:00 amLODIPine [Norvasc] 10 mg PO DAILY 03/23/18 04/04/18 04/02/18 21:00 metFORMIN XR [Glucophage XR] 500 mg PO DAILY 03/23/18 04/04/18 04/02/18 21:00 Allergies Allergy/AdvReac Type Severity Reaction Status Date / Time BEE STINGS AdvReac Shortness Uncoded 02/07/18 08:28 of Breath ED Review of Systems ROS: Stated complaint: URINARY RETENTION Other details as noted in HPI Comment: All other systems reviewed and negative ED Past Medical Hx - Past Medical History Previous Medical History?: Yes Hx Hypertension: Yes Hx Diabetes: Yes (NIDD) Hx GERD: Yes Hx Arthritis: Yes (back kpain) Hx Kidney Stones: Yes (X2) Hx HIV: No - Surgical History Past Surgical History?: Yes Additional Surgical History: prostate - Social History Smoking Status: Former Smoker Substance Use Type: None - Medications Home Medications: Home Medications Medication Instructions Recorded Confirmed Last Taken Type EPINEPHrine 1 dose SUB-Q PRN PRN 03/23/18 03/23/18 Unknown History Empagliflozin [Jardiance] 25 mg PO DAILY 03/23/18 04/04/18 04/02/18 21:00 History Losartan Potassium 100 mg PO DAILY 03/23/18 04/04/18 04/02/18 21:00 History amLODIPine [Norvasc] 10 mg PO DAILY 03/23/18 04/04/18 04/02/18 21:00 History metFORMIN XR [Glucophage XR] 500 mg PO DAILY 03/23/18 04/04/18 04/02/18 21:00 History ED Physical Exam - General Limitations: No Limitations - Other Other exam information: General: No limitations, patient is alert in no acute distress Head exam: Atraumatic, normocephalic Eyes exam: Normal appearance, pupils equal reactive to light, extraocular movements intact ENT: Moist mucous membrane, normal oropharynx Neck exam: Normal inspection, full range of motion, no meningismus nontender Respiratory exam: Clear to auscultation bilateral, no wheezes, rales, crackles Cardiovascular: Normal rate and rhythm, normal heart sounds Abdomen: Patient has laparoscopic surgical healing wounds to abdomen. Abdomen i s diffusely distended and tender. : Coud catheter Albarran placed by RN with 200 of initial urine output. Minimal relief in discomfort reported by patient Extremity: Full range of motion normal inspection no deformity Back: Normal Inspection, full range of motion, no tenderness Neurologic: Alert, oriented x3, cranial nerves intact, no motor or sensory deficit Psychiatric: normal affect, normal mood Skin: Warm, dry, intact ED Course Vital Signs 04/14/18 04/14/18 04/14/18 06:03 07:34 07:35 Temperature 97.8 F 99.2 F Pulse Rate 112 H 109 H Respiratory 20 21 Rate Blood Pressure 134/65 O2 Sat by Pulse 97 Oximetry 04/14/18 04/14/18 04/14/18 07:45 08:00 08:15 Temperature Pulse Rate 109 H 109 H 107 H Respiratory 38 H 32 H 33 H Rate Blood Pressure 149/78 143/79 142/79 O2 Sat by Pulse 94 97 Oximetry 04/14/18 04/14/18 08:30 08:45 Temperature Pulse Rate 109 H 109 H Respiratory 36 H 34 H Rate Blood Pressure 145/84 138/81 O2 Sat by Pulse 97 92 Oximetry - Reevaluation(s) Reevaluation #1: 04/14/18 09:02 Patient also having right shoulder pain which her pain from fluid in the abdomen. I will consult surgery they are also involved in case patient requires a general surgeon for his hospital admission. 04/14/18 09:23 Nadia is in the OR therfore consult ordered. 04/14/18 09:23 pt to be admitted to [facility] - Consultations Consultation #1: 04/14/18 08:[address] Subramanian urology to discuss his pt. 04/14/18 08:30 case d/w Dr Subramanian Consultation #2: 04/14/18 08:39 case d/w Dr Leonardo specifications checker nephrology. He will consult ED Medical Decision Making - Lab Data Result diagrams: 04/14/18 07:01 04/14/18 07:01 Lab Results 04/14/18 04/14/18 04/14/18 Range/Units 06:49 07:01 07:01 WBC 14.7 H (4.5-11.0) K/mm3 RBC 3.87 (3.65-5.03) M/mm3 Hgb 10.6 L (11.8-15.2) gm/dl Hct 32.9 L (35.5-45.6) % MCV 85 (84-94) fl MCH 28 (28-32) pg MCHC 32 (32-34) % RDW 13.9 (13.2-15.2) % Plt Count 365 (140-440) K/mm3 Lymph % (Auto) 6.2 L (13.4-35.0) % [place] % (Auto) 5.4 (0.0-7.3) % Eos % (Auto) 0.1 (0.0-4.3) % Baso % (Auto) 0.8 (0.0-1.8) % Lymph # 0.9 L (1.2-5.4) K/mm3 [place] # 0.8 (0.0-0.8) K/mm3 Eos # 0.0 (0.0-0.4) K/mm3 Baso # 0.1 (0.0-0.1) K/mm3 Seg Neutrophils % 87.5 H (40.0-70.0) % Seg Neutrophils # 12.9 H (1.8-7.7) K/mm3 Sodium 133 L (137-145) mmol/L Potassium 4.0 (3.6-5.0) mmol/L Chloride 95.3 L (98-107) mmol/L Carbon Dioxide 17 L (22-30) mmol/L Anion Gap 25 mmol/L BUN 25 H (9-20) mg/dL Creatinine 2.9 H (0.8-1.5) mg/dL Estimated GFR 26 ml/min BUN/Creatinine Ratio 9 % Glucose 205 H (75-100) mg/dL Calcium 8.5 (8.4-10.2) mg/dL Urine Color Red (Yellow) Urine Turbidity Slightly-cloudy (Clear) Urine pH 5.0 (5.0-7.0) Ur Specific [place] 1.024 (1.003-1.030) Urine Protein 100 mg/dl (Negative) mg/dL Urine Glucose (UA) >=500 (Negative) mg/dL Urine Ketones Tr (Negative) mg/dL Urine Blood Lg (Negative) Urine Nitrite Neg (Negative) Urine Bilirubin Neg (Negative) Urine Urobilinogen < 2.0 (<2.0) mg/dL Ur Leukocyte Esterase Neg (Negative) Urine WBC (Auto) 24.0 H (0.0-6.0) /HPF Urine RBC (Auto) > 182.0 (0.0-6.0) /HPF Urine Bacteria (Auto) 4+ (Negative) /HPF Urine WBC Clumps 2+ /HPF Urine Mucus Few /HPF Urine Sperm Few (SOUND PERSON) /HPF - Radiology Data Radiology results: report reviewed FINAL REPORT EXAM: CT ABDOMEN PELVIS WO CON HISTORY: s/p prostectomy, no uop, distended abd, albarran plac TECHNIQUE: CT images obtained through the Abdomen and Pelvis without contrast. Transaxial,coronal and sagittal reformats are provided. PRIORS: None. FINDINGS: Imaged intrathoracic contents are remarkable for bibasilar atelectasis/scarring. Sequela of mediastinal and pulmonary parenchymal old granulomatous disease also noted. A Albarran catheter is present in patient status post prostatectomy. Edema and stranding are present surrounding the urinary bladder. No stones in the urinary bladder. No hydroureteronephrosis or nephrolithiasis. A few scattered cysts are present measuring up to 10 cm in the left kidney and up to 4 cm in the right kidney. Small volume of abdominal and pelvic ascites without pneumoperitoneum or focal fluid collection identified to suggest abscess formation. The liver, gallbladder, pancreas, spleen, and adrenal glands otherwise demonstrate an unremarkable noncontrast appearance. Hollow enteric organs are normal in course and caliber. Appendix is normal. No intra-abdominal free air/fluid or lymphadenopathy. Aorta is normal in course and caliber. Superficial soft tissues are unremarkable. No acute or aggressive appearing skeletal findings. IMPRESSION: Small volume of abdominal and pelvic fluid may be infectious, inflammatory, or hemorrhagic in etiology. No focal fluid collection identified to suggest abscess formation is identified within limits of noncontrast CT. Stranding and edema involving the distal small bowel and colon within the pelvis are most likely reactive in the setting of recent prostatectomy. - Medical Decision Making Patient received Rocephin for UTI. Dilaudid and Zofran given for pain and nausea. IV fluids initiated. Urology and nephrology consulted. Hospitalist informed for admission. - Differential Diagnosis urinary obstruction, prostate cancer, perforation, UTI Critical Care Time: No Critical care attestation.: If time is entered above; I have spent that time in minutes in the direct care of this critically ill patient, excluding procedure time. ED Disposition Clinical Impression: Diabetes, HTN (hypertension), Prostate cancer, S/P prostatectomy, UTI (urinary tract infection), Abdominal pain, Acute renal insufficiency, Intra-abdominal fluid, Difficulty urinating Disposition: DC-[id number] OP ADMIT IP TO THIS HOSP Is pt being admited?: Yes Condition: Stable Time of Disposition: 08:41 (Dr Regan/hospitalist)
[2018-04-14 07:33] LABS: Calcium 8.5 mg/dL (8.4-10.2)
--- NOTE | 2018-04-14 08:17 | Cat Scan Report ---
FINAL REPORT EXAM: CT ABDOMEN PELVIS WO CON HISTORY: s/p prostectomy, no uop, distended abd, albarran plac TECHNIQUE: CT images obtained through the Abdomen and Pelvis without contrast. Transaxial,coronal an d sagittal reformats are provided. PRIORS: None. FINDINGS: Imaged intrathoracic contents are remarkable for bibasilar atelectasis/scarring. Sequela of mediastin al and pulmonary parenchymal old granulomatous disease also noted. A Albarran catheter is present in patient status post prostatectomy. Edema and stranding are present yarely rounding the urinary bladder. No stones in the urinary bladder. No hydroureteronephrosis or nephrolit hiasis. A few scattered cysts are present measuring up to 10 cm in the left kidney and up to 4 cm in the right kidney. Small volume of abdominal and pelvic ascites without pneumoperitoneum or focal fluid collection ident ified to suggest abscess formation. The liver, gallbladder, pancreas, spleen, and adrenal glands othe rwise demonstrate an unremarkable noncontrast appearance. Hollow enteric organs are normal in course and caliber. Appendix is normal. No intra-abdominal free air/fluid or lymphadenopathy. Aorta is normal in course and caliber. Superficial soft tissues are unremarkable. No acute or aggressive appearing skeletal findings. IMPRESSION: Small volume of abdominal and pelvic fluid may be infectious, inflammatory, or hemorrhagic in etiolog y. No focal fluid collection identified to suggest abscess formation is identified within limits of n oncontrast CT. Stranding and edema involving the distal small bowel and colon within the pelvis are most likely reac tive in the setting of recent prostatectomy.
[2018-04-14] MEDS ORDERED: NACL 0.9% 1000 ML 1,000 ML IV ONE (09:03)
--- NOTE | 2018-04-14 10:23 | History and Physical Report ---
History of Present Illness Date of examination: 04/14/18 Date of admission: 04/14/18 Chief complaint: Urinary Retention: History of present illness: Very pleasant 72-year-old male patient with past medical history of diabetes mellitus , hypertension, kidney stones, prostate cancer s/p robotic prostatectomy performed on April [address] Subramanian presents to Hospital com plaining of abdominal pain, distention, and inability to urinate 2 days. Patient states he has had very little dribbling urine output for the past 2 days with worsening abdominal pain and distention. Patient also reports severe pain and mild nausea, No history of fever Initial evaluation was consistent with urinary retention secondary to bladder outlet obstruction Patient received Andino catheter with continuous drainage Patient feels slightly but still complains of abdominal discomfort and di stention No nausea vomiting or abdominal pain Past History Past Medical History: diabetes, hypertension, other Past Surgical History: Other (prostate cancer status post surgery) Social history: lives with family. denies: smoking, alcohol abuse, prescription drug abuse Family history: hypertension Medications and Allergies Allergies Allergy/AdvReac Type Severity Reaction Status Date / Time BEE STINGS AdvReac Shortness Uncoded 02/07/18 08:28 of Breath Home Medications Medication Instructions Recorded Confirmed Last Taken Type Empagliflozin [Jardiance] 25 mg PO DAILY 03/23/18 04/15/18 04/12/18 21:00 History Losartan Potassium 100 mg PO DAILY 03/23/18 04/14/18 04/07/18 08:00 History 100 mg amLODIPine [Norvasc] 10 mg PO DAILY 03/23/18 04/14/18 04/10/18 History 0800 metFORMIN XR [Glucophage XR] 500 mg PO DAILY 03/23/18 04/14/18 04/08/18 History 500mg Exenatide Microspheres [Bydureon 0.6 mg SQ QWEEK 04/14/18 04/14/18 04/14/18 17:34 History Pen] 0800 Review of Systems Constitutional: no weight loss, no weight gain, no fever, no chills Ears, nose, mouth and throat: no nasal congestion, no nasal discharge Cardiovascular: no chest pain, no palpitations Respiratory: no cough, no hemoptysis Gastrointestinal: no abdominal pain, no nausea, no vomiting Genitourinary Male: urinary retention Musculoskeletal: no myalgias, no arthritis Integumentary: no rash, no lesions Neurological: no paralysis, no parathesias Psychiatric: no anxiety, no depression Endocrine: no cold intolerance, no heat intolerance Hematologic/Lymphatic: no easy bruising, no easy bleeding Allergic/Immunologic: no urticaria, no allergic rhinitis Exam - Constitutional Vitals: Temp Pulse Resp BP Pulse Ox 99.2 F 109 H 34 H 138/81 92 04/14/18 07:35 04/14/18 08:45 04/14/18 08:45 04/14/18 08:45 04/14/18 08:45 General appearance: Present: no acute distress, well-nourished - EENT Eyes: Present: PERRL, EOM intact - Neck Neck: Present: supple, normal ROM - Respiratory Respiratory effort: normal Respiratory: bilateral: diminished, negative: rales, rhonchi, wheezing - Cardiovascular Rhythm: regular Heart Sounds: Present: S1 & S2 - Extremities Extremities: no ischemia, No edema - Abdominal General gastrointestinal: Present: soft, non-tender, non-distended, normal bowel sounds - Integumentary Integumentary: Present: clear, warm - Musculoskeletal Musculoskeletal: strength equal bilaterally - Psychiatric Psychiatric: appropriate mood/affect, cooperative - Neurologic Neurologic: CNII-XII intact, moves all extremities Results - Labs CBC & Chem 7: 04/15/18 03:32 04/15/18 03:32 Labs: Abnormal lab results 04/14/18 04/14/18 04/14/18 Range/Units 06:49 07:01 07:01 WBC 14.7 H (4.5-11.0) K/mm3 Hgb 10.6 L (11.8-15.2) gm/dl Hct 32.9 L (35.5-45.6) % Lymph % (Auto) 6.2 L (13.4-35.0) % Lymph # 0.9 L (1.2-5.4) K/mm3 Seg Neutrophils % 87.5 H (40.0-70.0) % Seg Neutrophils # 12.9 H (1.8-7.7) K/mm3 Sodium 133 L (137-145) mmol/L Chloride 95.3 L (98-107) mmol/L Carbon Dioxide 17 L (22-30) mmol/L BUN 25 H (9-20) mg/dL Creatinine 2.9 H (0.8-1.5) mg/dL Glucose 205 H (75-100) mg/dL Urine WBC (Auto) 24.0 H (0.0-6.0) /HPF Assessment and Plan --Bladder out let obstruction/urinary retention Continuous Andino catheterization, urology consulted by ED --Urinary tract infection; empiric antibiotics with Rocephin Follow cultures, supportive care --Leukocytosis; secondary to sepsis due to UTI --Acute kidney injury; vasomotor nephropathy, obstructive uropathy Closely monitor renal function, avoid nephrotoxins --Mild hyponatremia; closely monitor electrolytes, IV fluids --History of prostate cancer;s/p prostatectomy, management per urology --Hypertension; resume home antihypertensives and when necessary medications --Type 2 diabetes mellitus; Accu-Chek sliding scale coverage ADA diet Insulin as needed --DVT prophylaxis; SCDs/Lovenox --Full CODE STATUS Closely monitor the patient and adjust management as needed Plan of care is reviewed with the patient and his nurse
[2018-04-14] MEDS ORDERED: MORPHINE IV PRN (10:40)
[2018-04-14] MEDS: HumaLOG SUB-Q SCH ×2 (11:34→16:53)
[2018-04-14] MEDS: NACL 0.9% 1000 ML 1,000 ML IV SCH (11:45)
--- NOTE | 2018-04-14 12:16 | Consultation ---
History of Present Illness - Reason for Consult Consult date: 04/14/18 acute renal failure - History of Present Illness This is a 72 year old who presents to the hospital with a chief complaint of unable to urinate for the last 2 days with associated pelvic pain. Patient had recent robotic prostatectomy by Dr. Subramanian on 04/04/18 and was discharged home with Bactrim. Patient also has history of prostate cancer, hypertension and diabetes mellitus. Upon evaluation, pertinent labs revealed an elevated serum creatinine of 2.9. Review of prior records showed serum creatinine 1.0 on 04/04/18 and 1.2 on 04/05/18. We are being consulted for management of this patient's Acute Renal Failure. Past History Past Medical History: diabetes, hypertension, other (Prostate cancer) Past Surgical History: No surgical history, Other (Prostatectomy on 04/04/18) Social history: no significant social history Family history: no significant family history Medications and Allergies Allergies Allergy/AdvReac Type Severity Reaction Status Date / Time BEE STINGS AdvReac Shortness Uncoded 02/07/18 08:28 of Breath Home Medications Medication Instructions Recorded Confirmed Last Taken Type EPINEPHrine 1 dose SUB-Q PRN PRN 03/23/18 03/23/18 Unknown History Empagliflozin [Jardiance] 25 mg PO DAILY 03/23/18 04/04/18 04/02/18 21:00 History Losartan Potassium 100 mg PO DAILY 03/23/18 04/04/18 04/02/18 21:00 History amLODIPine [Norvasc] 10 mg PO DAILY 03/23/18 04/04/18 04/02/18 21:00 History metFORMIN XR [Glucophage XR] 500 mg PO DAILY 03/23/18 04/04/18 04/02/18 21:00 History Active Meds: Active Medications Amlodipine Besylate (Norvasc) 10 mg PO DAILY [facility] Enoxaparin Sodium (Lovenox) 30 mg SUB-Q QDAY [facility] Famotidine (Pepcid) 20 mg PO QDAY [facility] Ceftriaxone Sodium (Rocephin/Ns 1 Gm/50 Ml) 1 gm in 50 mls @ 100 mls/hr IV Q12H [facility]; Protocol Sodium Chloride (Nacl 0.9% 1000 Ml) 1,000 mls @ 75 mls/hr IV DIRECT [facility] Insulin Human Lispro (Humalog) 0 unit SUB-Q ACHS [facility]; Protocol Last Admin: 04/14/18 11:34 Dose: Not Given Documented by: Morphine Sulfate (Morphine) 2 mg IV Q4H PRN PRN Reason: Pain, Moderate (4-6) Oxycodone/Acetaminophen (Percocet 5/325) 1 tab PO Q6H PRN PRN Reason: Pain, Moderate (4-6) Review of Systems Constitutional: fatigue, no weight loss, no weight gain, no fever, no chills Ears, nose, mouth and throat: no ear pain, no ear discharge, no tinnitis, no decreased hearing, no nose pain, no nasal congestion, no nasal discharge Cardiovascular: no chest pain, no orthopnea, no palpitations, no rapid/irregular heart beat, no edema, no syncope, no lightheadedness, no shortness of breath Respiratory: no cough, no cough with sputum, no excessive sputum, no hemoptysis, no shortness of breath, no dyspnea on exertion Gastrointestinal: abdominal pain, no vomiting, no diarrhea, no constipation, no change in bowel habits, no hematemesis, no coffee ground emesis Genitourinary Male: no hematuria, no flank pain, no discharge, no urinary frequency, no urinary hesitancy, no nocturia Rectal: no pain, no incontinence Musculoskeletal: no neck stiffness, no neck pain, no shooting arm pain, no arm numbness/tingling, no low back pain Integumentary: no rash, no pruritis, no redness, no sores Neurological: no head injury, no transient paralysis, no paralysis, no weakness, no parathesias Psychiatric: no anxiety, no memory loss, no change in sleep habits, no sleep disturbances, no insomnia Endocrine: no cold intolerance, no heat intolerance, no polyphagia, no excessive thirst, no polydipsia, no polyuria Hematologic/Lymphatic: no easy bruising, no easy bleeding, no lymphadenopathy Exam - Vital Signs Vital signs: Vital Signs Temp Pulse Resp BP Pulse Ox 97.8 F 112 H 20 134/65 97 04/14/18 06:03 04/14/18 06:03 04/14/18 06:03 04/14/18 06:03 04/14/18 06:03 - General Appearance General appearance: well-developed, appears stated age, fatigue EENT: ATNC, PERRL, hearing intact, vision intact Neck: Present: neck supple, trachea midline Respiratory: Decreased Breath Sounds Heart: regular, S1S2 Gastrointestinal: Present: normoactive bowel sounds Integumentary: no rash, warm and dry Neurologic: alert and oriented x3 Musculoskeletal: Present: other (No edema) Psychiatric: cooperative Results - Lab Results 04/14/18 07:01 04/14/18 07:01 Most recent lab results Calcium 8.5 mg/dL (8.4-10.2) 04/14/18 07:01 Assessment and Plan Acute Renal failure secondary to possible urine retention/obstruction vs AIN: Metabolic Acidosis: -S/P prostatectomy for Prostate cancer 04/04/18 and was discharged home on bactrim -Serum creatinine 2.9 today. Baseline serum creatinine is ~1.0-1.2 -Ct of Abdomen and Pelvis showed- Small volume of fluid in abdomen and pelvis, scattered cysts. No Hydronephrosis. -Andino placed for urine retention -Continue on IVF with NS@ 75 ml/hr -Start Sodium Bicarbonate 650 mg po TID -Obtain urine lytes and obtain urine eosinophils -Avoid Nephrotoxic agents -Monitor I/O's -Obtain daily weights -Monitor renal function closely Urine Retention: Prostate Cancer: -S/P Prostatectomy on 04/04/[address] Subramanian -Andino catheter placed -Urology consulted UTI: Leukocytosis: -On IV Rocephin -Urine and blood cultures-pending Hypertension: -Continue on current regimen and adjust as needed -On Amlodipine 10 mg po daily Diabetes Mellitus: -On Insulin -As per primary
--- NOTE | 2018-04-14 14:23 | Consultation ---
History of Present Illness Consult date: 04/14/18 Chief complaint: abdominal pain, unable to urinate - History of present illness History of present illness: 72 yo M who underwent Robotic assisted prostatectomy on 04/04/[address] Subramanian presents to hospital with c/o crampy lower abdominal pain and inability to urinate. The patient was discharged after surgery with a albarran catheter which was removed in the urology office on 04/12. Since then the patient states his abdomen has become distended and he is having intermittent cramping in his lower abdomen. He has not been able to urinate since the albarran was removed and the urine only dribbles out. He had a normal bowel movement two days ago but since then has not had BM or flatus. He is eating but appetite is poor and he feels nauseated at times. No vomiting. No f/c. NO CP, SOB. He does c/o associated right flank pain and right shoulder pain. Past History Past Medical History: diabetes, hypertension, other (Prostate cancer) Past Surgical History: Other (Prostatectomy on 04/04/18) Social history: no significant social history Family history: no significant family history Medications and Allergies Allergies Allergy/AdvReac Type Severity Reaction Status Date / Time BEE STINGS AdvReac Shortness Uncoded 02/07/18 08:28 of Breath Home Medications Medication Instructions Recorded Confirmed Last Taken Type EPINEPHrine 1 dose SUB-Q PRN PRN 03/23/18 03/23/18 Unknown History Empagliflozin [Jardiance] 25 mg PO DAILY 03/23/18 04/04/18 04/02/18 21:00 History Losartan Potassium 100 mg PO DAILY 03/23/18 04/04/18 04/02/18 21:00 History amLODIPine [Norvasc] 10 mg PO DAILY 03/23/18 04/04/18 04/02/18 21:00 History metFORMIN XR [Glucophage XR] 500 mg PO DAILY 03/23/18 04/04/18 04/02/18 21:00 History Active Meds: Active Medications Amlodipine Besylate (Norvasc) 10 mg PO DAILY [facility] Enoxaparin Sodium (Lovenox) 30 mg SUB-Q QDAY [facility] Famotidine (Pepcid) 20 mg PO QDAY [facility] Ceftriaxone Sodium (Rocephin/Ns 1 Gm/50 Ml) 1 gm in 50 mls @ 100 mls/hr IV Q12H [facility]; Protocol Sodium Chloride (Nacl 0.9% 1000 Ml) 1,000 mls @ 75 mls/hr IV DIRECT [facility] Last Admin: 04/14/18 11:45 Dose: 75 mls/hr Documented by: Insulin Human Lispro (Humalog) 0 unit SUB-Q ACHS [facility]; Protocol Last Admin: 04/14/18 11:34 Dose: Not Given Documented by: Morphine Sulfate (Morphine) 2 mg IV Q4H PRN PRN Reason: Pain, Moderate (4-6) Last Admin: 04/14/18 12:32 Dose: 2 mg Documented by: Oxycodone/Acetaminophen (Percocet 5/325) 1 tab PO Q6H PRN PRN Reason: Pain, Moderate (4-6) Sodium Bicarbonate (Sodium Bicarbonate) 650 mg PO TID [facility] Review of Systems All systems: negative (10 PT ROS performed and negative except for that listed in HPI) Exam Vital Signs Temp Pulse Resp BP Pulse Ox 97.8 F 112 H 20 134/65 97 04/14/18 06:03 04/14/18 06:03 04/14/18 06:03 04/14/18 06:03 04/14/18 06:03 Narrative exam: Gen: AAOx3. mild distress due to abdominal pain ENT: no scleral icterus or conjunctival pallor CV: s1, s2+ Resp: even and unlabored Abd: soft, distended, + aileen-incisional TTP and bilateral lower quadrant TTP. + right flank TTP. Incisions c/d/i. No r/r/g Ext: no c/c/e : Albarran with clear yellow urine Results - Labs 04/14/18 07:01 04/14/18 07:01 Abnormal lab results 04/14/18 04/14/18 04/14/18 Range/Units 06:49 07:01 07:01 WBC 14.7 H (4.5-11.0) K/mm3 Hgb 10.6 L (11.8-15.2) gm/dl Hct 32.9 L (35.5-45.6) % Lymph % (Auto) 6.2 L (13.4-35.0) % Lymph # 0.9 L (1.2-5.4) K/mm3 Seg Neutrophils % 87.5 H (40.0-70.0) % Seg Neutrophils # 12.9 H (1.8-7.7) K/mm3 Sodium 133 L (137-145) mmol/L Chloride 95.3 L (98-107) mmol/L Carbon Dioxide 17 L (22-30) mmol/L BUN 25 H (9-20) mg/dL Creatinine 2.9 H (0.8-1.5) mg/dL Glucose 205 H (75-100) mg/dL POC Glucose (70-105) Urine WBC (Auto) 24.0 H (0.0-6.0) /HPF 04/14/18 Range/Units 11:12 WBC (4.5-11.0) K/mm3 Hgb (11.8-15.2) gm/dl Hct (35.5-45.6) % Lymph % (Auto) (13.4-35.0) % Lymph # (1.2-5.4) K/mm3 Seg Neutrophils % (40.0-70.0) % Seg Neutrophils # (1.8-7.7) K/mm3 Sodium (137-145) mmol/L Chloride (98-107) mmol/L Carbon Dioxide (22-30) mmol/L BUN (9-20) mg/dL Creatinine (0.8-1.5) mg/dL Glucose (75-100) mg/dL POC Glucose 145 H (70-105) Urine WBC (Auto) (0.0-6.0) /HPF Diabetes panel 04/14/18 Range/Units 07:01 Sodium 133 L (137-145) mmol/L Potassium 4.0 (3.6-5.0) mmol/L Chloride 95.3 L (98-107) mmol/L Carbon Dioxide 17 L (22-30) mmol/L BUN 25 H (9-20) mg/dL Creatinine 2.9 H (0.8-1.5) mg/dL Glucose 205 H (75-100) mg/dL Calcium 8.5 (8.4-10.2) mg/dL Calcium panel 04/14/18 Range/Units 07:01 Calcium 8.5 (8.4-10.2) mg/dL Pituitary panel 04/14/18 Range/Units 07:01 Sodium 133 L (137-145) mmol/L Potassium 4.0 (3.6-5.0) mmol/L Chloride 95.3 L (98-107) mmol/L Carbon Dioxide 17 L (22-30) mmol/L BUN 25 H (9-20) mg/dL Creatinine 2.9 H (0.8-1.5) mg/dL Glucose 205 H (75-100) mg/dL Calcium 8.5 (8.4-10.2) mg/dL Adrenal panel 04/14/18 Range/Units 07:01 Sodium 133 L (137-145) mmol/L Potassium 4.0 (3.6-5.0) mmol/L Chloride 95.3 L (98-107) mmol/L Carbon Dioxide 17 L (22-30) mmol/L BUN 25 H (9-20) mg/dL Creatinine 2.9 H (0.8-1.5) mg/dL Glucose 205 H (75-100) mg/dL Calcium 8.5 (8.4-10.2) mg/dL - Imaging CT scan - abdomen: report reviewed, image reviewed CT scan - pelvis: report reviewed, image reviewed Assessment and Plan 72 yo M with 1. abdominal pain s/p robotic prostatectomy 04/04/18 2. inability to urinate 3. LYUDMILA Plan: 1. CT scan reviewed. The patient's symptoms are likely related to recent prostatectomy. Fluid in abdomen appears to be post surgical, there is no free air. I will defer to urology for post op and albarran management. 2. Diabetic diet 3. prn nausea and pain control 4. IVF 5. nephrology on board 6. will follow with you. At this point, there is no urgent need for general surgical intervention. Thank you, please call with questions.
[2018-04-14] MEDS: SODIUM BICARBONATE PO SCH ×2 (14:59→20:31)
[2018-04-14] MEDS: PEPCID PO SCH (14:59)
[2018-04-14 16:31] LABS: Creatinine,Urine 123.2 mg/dL (0.1-20.0)
[2018-04-14 16:48] LABS: Creatinine,Urine 122.7 mg/dL (0.1-20.0); Protein/Creatinine Ratio,Urine 0.15
--- NOTE | 2018-04-14 17:38 | Consultation ---
History of Present Illness - Reason for Consult Consult date: 04/14/18 - History of Present Illness 72-year-old male with a past medical history of arthritis, diabetes, GERD, hypertension, kidney stones, prostate cancer, and recent robotic prostatectomy performed on April 04 by me presents to Hospital complaining of abdominal pain, distention, and inability to urinate 2 days (albarran removed 2 days ago) Patient states he has had very little dribbling urine output for the past 2 days with worsening abdominal pain and distention. Presents with pain rated 10/10 in intensity, constant, and worse with palpation. Nausea reported without vomiting or fever. Surgery was uncomplicated CTAP - no acute process A/p s/p robotic prostatectomy---04-04-18 renal insuff appreciate nephrology & gen surgery input Past History Past Medical History: diabetes, hypertension, other Past Surgical History: Other (prostate cancer status post surgery) Social history: lives with family. denies: smoking, alcohol abuse, prescription drug abuse Family history: hypertension Medications and Allergies Allergies Allergy/AdvReac Type Severity Reaction Status Date / Time BEE STINGS AdvReac Shortness Uncoded 02/07/18 08:28 of Breath Home Medications Medication Instructions Recorded Confirmed Last Taken Type Empagliflozin [Jardiance] 25 mg PO DAILY 03/23/18 04/04/18 04/02/18 21:00 History Losartan Potassium 100 mg PO DAILY 03/23/18 04/14/18 04/07/18 08:00 History 100 mg amLODIPine [Norvasc] 10 mg PO DAILY 03/23/18 04/14/18 04/10/18 History 0800 metFORMIN XR [Glucophage XR] 500 mg PO DAILY 03/23/18 04/14/18 04/08/18 History 500mg Exenatide Microspheres [Bydureon 0.6 mg SQ QWEEK 04/14/18 04/14/18 04/14/18 17:34 History Pen] 0800 Active Meds: Active Medications Amlodipine Besylate (Norvasc) 10 mg PO DAILY [facility] Enoxaparin Sodium (Lovenox) 30 mg SUB-Q QDAY [facility] Famotidine (Pepcid) 20 mg PO QDAY [facility] Last Admin: 04/14/18 14:59 Dose: 20 mg Documented by: Ceftriaxone Sodium (Rocephin/Ns 1 Gm/50 Ml) 1 gm in 50 mls @ 100 mls/hr IV Q12H [facility]; Protocol Sodium Chloride (Nacl 0.9% 1000 Ml) 1,000 mls @ 75 mls/hr IV DIRECT [facility] Last Admin: 04/14/18 11:45 Dose: 75 mls/hr Documented by: Insulin Human Lispro (Humalog) 0 unit SUB-Q ACHS [facility]; Protocol Last Admin: 04/14/18 16:53 Dose: Not Given Documented by: Morphine Sulfate (Morphine) 2 mg IV Q4H PRN PRN Reason: Pain, Moderate (4-6) Last Admin: 04/14/18 12:32 Dose: 2 mg Documented by: Oxycodone/Acetaminophen (Percocet 5/325) 1 tab PO Q6H PRN PRN Reason: Pain, Moderate (4-6) Sodium Bicarbonate (Sodium Bicarbonate) 650 mg PO TID [facility] Last Admin: 04/14/18 14:59 Dose: 650 mg Documented by: Exam - Constitutional Vitals: Temp Pulse Resp BP Pulse Ox 98.9 F 95 H 20 129/67 99 04/14/18 14:18 04/14/18 14:18 04/14/18 14:18 04/14/18 14:18 04/14/18 14:18 Results - Labs CBC & Chem 7: 04/14/18 07:01 04/14/18 07:01 Labs: Abnormal lab results 04/14/18 04/14/18 04/14/18 Range/Units 06:49 07:01 07:01 WBC 14.7 H (4.5-11.0) K/mm3 Hgb 10.6 L (11.8-15.2) gm/dl Hct 32.9 L (35.5-45.6) % Lymph % (Auto) 6.2 L (13.4-35.0) % Lymph # 0.9 L (1.2-5.4) K/mm3 Seg Neutrophils % 87.5 H (40.0-70.0) % Seg Neutrophils # 12.9 H (1.8-7.7) K/mm3 Sodium 133 L (137-145) mmol/L Chloride 95.3 L (98-107) mmol/L Carbon Dioxide 17 L (22-30) mmol/L BUN 25 H (9-20) mg/dL Creatinine 2.9 H (0.8-1.5) mg/dL Glucose 205 H (75-100) mg/dL POC Glucose (70-105) Urine WBC (Auto) 24.0 H (0.0-6.0) /HPF Urine Creatinine (0.1-20.0) mg/dL Urine Total Protein (5-11.8) mg/dL 04/14/18 04/14/18 04/14/18 Range/Units 11:12 16:00 16:00 WBC (4.5-11.0) K/mm3 Hgb (11.8-15.2) gm/dl Hct (35.5-45.6) % Lymph % (Auto) (13.4-35.0) % Lymph # (1.2-5.4) K/mm3 Seg Neutrophils % (40.0-70.0) % Seg Neutrophils # (1.8-7.7) K/mm3 Sodium (137-145) mmol/L Chloride (98-107) mmol/L Carbon Dioxide (22-30) mmol/L BUN (9-20) mg/dL Creatinine (0.8-1.5) mg/dL Glucose (75-100) mg/dL POC Glucose 145 H (70-105) Urine WBC (Auto) (0.0-6.0) /HPF Urine Creatinine 123.2 H 122.7 H (0.1-20.0) mg/dL Urine Total Protein 19 H (5-11.8) mg/dL 04/14/18 Range/Units 16:49 WBC (4.5-11.0) K/mm3 Hgb (11.8-15.2) gm/dl Hct (35.5-45.6) % Lymph % (Auto) (13.4-35.0) % Lymph # (1.2-5.4) K/mm3 Seg Neutrophils % (40.0-70.0) % Seg Neutrophils # (1.8-7.7) K/mm3 Sodium (137-145) mmol/L Chloride (98-107) mmol/L Carbon Dioxide (22-30) mmol/L BUN (9-20) mg/dL Creatinine (0.8-1.5) mg/dL Glucose (75-100) mg/dL POC Glucose 137 H (70-105) Urine WBC (Auto) (0.0-6.0) /HPF Urine Creatinine (0.1-20.0) mg/dL Urine Total Protein (5-11.8) mg/dL
[2018-04-14] MEDS: PERCOCET 5/325 PO PRN ×2 (18:38→21:59)
[2018-04-14] MEDS ORDERED: ROCEPHIN/NS 1 GM/50 ML 1 GM/50 ML BAG IV SCH (20:00)
[2018-04-14] MEDS ORDERED: PEPCID PO SCH (22:00)
[2018-04-15] MEDS: HumaLOG SUB-Q SCH ×5 (00:48→22:16)
[2018-04-15] MEDS: PERCOCET 5/325 PO PRN ×2 (04:25→09:29)
[2018-04-15 04:27] LABS: Basophils # (Auto) 0.1 K/mm3 (0.0-0.1); Basophils % (Auto) 0.6 % (0.0-1.8); Eosinophils % (Auto) 0.4 % (0.0-4.3); Hematocrit 32.9 % (35.5-45.6); Hemoglobin 10.5 gm/dl (11.8-15.2); Lymphocytes # (Auto) 1.1 K/mm3 (1.2-5.4); Lymphocytes % (Auto) 9.9 % (13.4-35.0); Mean Corpuscular HGB Conc 32 % (32-34); Mean Corpuscular Volume 86 fl (84-94); Monocytes # (Auto) 0.7 K/mm3 (0.0-0.8); Monocytes % (Auto) 6.6 % (0.0-7.3); Platelet Count 350 K/mm3 (140-440); Red Blood Count 3.83 M/mm3 (3.65-5.03); Red Cell Distribution Width 13.9 % (13.2-15.2)
[2018-04-15 05:31] LABS: Albumin 3.3 g/dL (3.9-5); Calcium 8.2 mg/dL (8.4-10.2)
--- NOTE | 2018-04-15 08:40 | Progress Note ---
Assessment and Plan Assessment and plan: --Bladder out let obstruction/urinary retention Continuous Andino catheterization, urology evaluation noted in appreciated follow-up with urology with Andino intact upon discharge --Urinary tract infection; empiric antibiotics with Rocephin Follow cultures, supportive care --Leukocytosis; secondary to sepsis due to UTI --Acute kidney injury; vasomotor nephropathy, obstructive uropathy Creatinine significantly improved from 0.9-1.7 Closely monitor renal function, avoid nephrotoxins --Mild hyponatremia; resolved . --History of prostate cancer;s/p prostatectomy, management per urology --Hypertension; well controlled , continue current antihypertensives and when necessary medications --Type 2 diabetes mellitus; Accu-Chek sliding scale coverage ADA diet Insulin as needed --DVT prophylaxis; SCDs/Lovenox --Full CODE STATUS Closely monitor the patient and adjust management as needed Possible discharge in 1-2 days if renal function improves Plan of care reviewed with the patient and his History Interval history: Patient seen and examined medical records reviewed Patient feels slightly better Complaints of mild bladder spasms Andino catheter in place Alert awake oriented Vital signs reviewed Hospitalist Physical - Constitutional Vitals: Temp Pulse Resp BP Pulse Ox 98.2 F 96 H 20 135/77 97 04/15/18 08:18 04/15/18 08:18 04/15/18 08:18 04/15/18 08:18 04/15/18 08:18 General appearance: Present: no acute distress, well-nourished - EENT Eyes: Present: PERRL, EOM intact - Neck Neck: Present: supple, normal ROM - Respiratory Respiratory effort: normal Respiratory: bilateral: diminished, negative: rales, rhonchi, wheezing - Cardiovascular Rhythm: regular Heart Sounds: Present: S1 & S2 - Extremities Extremities: no ischemia, No edema - Abdominal General gastrointestinal: soft, non-tender, non-distended, normal bowel sounds - Integumentary Integumentary: Present: clear, warm - Psychiatric Psychiatric: appropriate mood/affect, cooperative - Neurologic Neurologic: CNII-XII intact, moves all extremities Results - Labs CBC & Chem 7: 04/15/18 03:32 04/15/18 03:32 Labs: Laboratory Last Values WBC 10.6 K/mm3 (4.5-11.0) 04/15/18 03:32 RBC 3.83 M/mm3 (3.65-5.03) 04/15/18 03:32 Hgb 10.5 gm/dl (11.8-15.2) L 04/15/18 03:32 Hct 32.9 % (35.5-45.6) L 04/15/18 03:32 MCV 86 fl (84-94) 04/15/18 03:32 MCH 27 pg (28-32) L 04/15/18 03:32 MCHC 32 % (32-34) 04/15/18 03:32 RDW 13.9 % (13.2-15.2) 04/15/18 03:32 Plt Count 350 K/mm3 (140-440) 04/15/18 03:32 Lymph % (Auto) 9.9 % (13.4-35.0) L 04/15/18 03:32 [place]ick % (Auto) 6.6 % (0.0-7.3) 04/15/18 03:32 Eos % (Auto) 0.4 % (0.0-4.3) 04/15/18 03:32 Baso % (Auto) 0.6 % (0.0-1.8) 04/15/18 03:32 Lymph # 1.1 K/mm3 (1.2-5.4) L 04/15/18 03:32 [place]ick # 0.7 K/mm3 (0.0-0.8) 04/15/18 03:32 Eos # 0.0 K/mm3 (0.0-0.4) 04/15/18 03:32 Baso # 0.1 K/mm3 (0.0-0.1) 04/15/18 03:32 Seg Neutrophils % 82.5 % (40.0-70.0) H 04/15/18 03:32 Seg Neutrophils # 8.7 K/mm3 (1.8-7.7) H 04/15/18 03:32 Sodium 141 mmol/L (137-145) D 04/15/18 03:32 Potassium 4.0 mmol/L (3.6-5.0) 04/15/18 03:32 Chloride 106.3 mmol/L (98-107) 04/15/18 03:32 Carbon Dioxide 16 mmol/L (22-30) L 04/15/18 03:32 Anion Gap 23 mmol/L 04/15/18 03:32 BUN 17 mg/dL (9-20) 04/15/18 03:32 Creatinine 1.7 mg/dL (0.8-1.5) H 04/15/18 03:32 Estimated GFR 48 ml/min 04/15/18 03:32 BUN/Creatinine Ratio 10 % 04/15/18 03:32 Glucose 96 mg/dL (75-100) 04/15/18 03:32 POC Glucose 94 (70-105) 04/15/18 07:38 Hemoglobin A1c 7.3 % (4-6) H 04/15/18 03:32 Calcium 8.2 mg/dL (8.4-10.2) L 04/15/18 03:32 Phosphorus 3.20 mg/dL (2.5-4.5) 04/15/18 03:32 Magnesium 2.30 mg/dL (1.7-2.3) 04/15/18 03:32 Total Bilirubin 0.60 mg/dL (0.1-1.2) 04/15/18 03:32 AST 15 units/L (5-40) 04/15/18 03:32 ALT 12 units/L (7-56) 04/15/18 03:32 Alkaline Phosphatase 59 units/L (35-129) 04/15/18 03:32 Total Protein 6.3 g/dL (6.3-8.2) 04/15/18 03:32 Albumin 3.3 g/dL (3.9-5) L 04/15/18 03:32 Albumin/Globulin Ratio 1.1 % 04/15/18 03:32 Urine Color Red (Yellow) 04/14/18 06:49 Urine Turbidity Slightly-cloudy (Clear) 04/14/18 06:49 Urine pH 5.0 (5.0-7.0) 04/14/18 06:49 Ur Specific [place] 1.024 (1.003-1.030) 04/14/18 06:49 Urine Protein 100 mg/dl mg/dL (Negative) 04/14/18 06:49 Urine Glucose (UA) >=500 mg/dL (Negative) 04/14/18 06:49 Urine Ketones Tr mg/dL (Negative) 04/14/18 06:49 Urine Blood Lg (Negative) 04/14/18 06:49 Urine Nitrite Neg (Negative) 04/14/18 06:49 Urine Bilirubin Neg (Negative) 04/14/18 06:49 Urine Urobilinogen < 2.0 mg/dL (<2.0) 04/14/18 06:49 Ur Leukocyte Esterase Neg (Negative) 04/14/18 06:49 Urine WBC (Auto) 24.0 /HPF (0.0-6.0) H 04/14/18 06:49 Urine RBC (Auto) > 182.0 /HPF (0.0-6.0) 04/14/18 06:49 Urine Bacteria (Auto) 4+ /HPF (Negative) 04/14/18 06:49 Urine WBC Clumps 2+ /HPF 04/14/18 06:49 Urine Mucus Few /HPF 04/14/18 06:49 Urine Sperm Few /HPF (SUPERVISOR DISPLAY FABRICATION) 04/14/18 06:49 Urine Eosinophils 0.1% (None Seen) 04/14/18 16:00 Urine Creatinine 122.7 mg/dL (0.1-20.0) H 04/14/18 16:00 Protein/Creatinin Ratio 0.15 04/14/18 16:00 Urine Sodium 68 mmol/L 04/14/18 16:00 Urine Total Protein 19 mg/dL (5-11.8) H 04/14/18 16:00
--- NOTE | 2018-04-15 08:51 | Progress Note ---
Subjective Date of service: 04/15/18 Interval history: 72-year-old male with a past medical history of arthritis, diabetes, GERD, hypertension, kidney stones, prostate cancer, and recent robotic prostatectomy performed on April 04 by me presents to Hospital complaining of abdominal pain, distention, and inability to urinate 2 days (albarran removed 2 days ago) Patient states he has had very little dribbling urine output for the past 2 days with worsening abdominal pain and distention. Presents with pain rated 10/10 in intensity, constant, and worse with palpation. Nausea reported without vomiting or fever. Surgery was uncomplicated CTAP - no acute process abd soft albarran draining A/p s/p robotic prostatectomy---04-04-18 renal insuff - improving home with albarran when stable no acute gu issue Objective - Constitutional Vitals: Vital Signs - 12hr 04/15/18 04/15/18 04/15/18 02:25 02:26 08:18 Temperature 98.6 F 98.2 F Pulse Rate 104 H 96 H Respiratory 20 20 Rate Blood Pressure 138/78 135/77 O2 Sat by Pulse 97 97 Oximetry - Labs CBC & Chem 7: 04/15/18 03:32 04/15/18 03:32 Labs: Abnormal lab results 04/14/18 04/14/18 04/14/18 Range/Units 11:12 16:00 16:00 Hgb (11.8-15.2) gm/dl Hct (35.5-45.6) % MCH (28-32) pg Lymph % (Auto) (13.4-35.0) % Lymph # (1.2-5.4) K/mm3 Seg Neutrophils % (40.0-70.0) % Seg Neutrophils # (1.8-7.7) K/mm3 Carbon Dioxide (22-30) mmol/L Creatinine (0.8-1.5) mg/dL POC Glucose 145 H (70-105) Hemoglobin A1c (4-6) % Calcium (8.4-10.2) mg/dL Albumin (3.9-5) g/dL Urine Creatinine 123.2 H 122.7 H (0.1-20.0) mg/dL Urine Total Protein 19 H (5-11.8) mg/dL 02/07/19 02/08/19 02/08/19 Range/Units 16:49 03:32 03:32 Hgb 10.5 L (11.8-15.2) gm/dl Hct 32.9 L (35.5-45.6) % MCH 27 L (28-32) pg Lymph % (Auto) 9.9 L (13.4-35.0) % Lymph # 1.1 L (1.2-5.4) K/mm3 Seg Neutrophils % 82.5 H (40.0-70.0) % Seg Neutrophils # 8.7 H (1.8-7.7) K/mm3 Carbon Dioxide 16 L (22-30) mmol/L Creatinine 1.7 H (0.8-1.5) mg/dL POC Glucose 137 H (70-105) Hemoglobin A1c (4-6) % Calcium 8.2 L (8.4-10.2) mg/dL Albumin 3.3 L (3.9-5) g/dL Urine Creatinine (0.1-20.0) mg/dL Urine Total Protein (5-11.8) mg/dL 04/15/18 Range/Units 03:32 Hgb (11.8-15.2) gm/dl Hct (35.5-45.6) % MCH (28-32) pg Lymph % (Auto) (13.4-35.0) % Lymph # (1.2-5.4) K/mm3 Seg Neutrophils % (40.0-70.0) % Seg Neutrophils # (1.8-7.7) K/mm3 Carbon Dioxide (22-30) mmol/L Creatinine (0.8-1.5) mg/dL POC Glucose (70-105) Hemoglobin A1c 7.3 H (4-6) % Calcium (8.4-10.2) mg/dL Albumin (3.9-5) g/dL Urine Creatinine (0.1-20.0) mg/dL Urine Total Protein (5-11.8) mg/dL Medications & Allergies - Medications Allergies/Adverse Reactions: Allergies BEE STINGS Adverse Reaction (Uncoded 02/07/18 08:28) Shortness of Breath Home Medications: Home Medications Medication Instructions Recorded Confirmed Last Taken Type Empagliflozin [Jardiance] 25 mg PO DAILY 03/23/18 04/15/18 04/12/18 21:00 History Losartan Potassium 100 mg PO DAILY 03/23/18 04/14/18 04/07/18 08:00 History 100 mg amLODIPine [Norvasc] 10 mg PO DAILY 03/23/18 04/14/18 04/10/18 History 0800 metFORMIN XR [Glucophage XR] 500 mg PO DAILY 03/23/18 04/14/18 04/08/18 History 500mg Exenatide Microspheres [Bydureon 0.6 mg SQ QWEEK 04/14/18 04/14/18 04/14/18 17:34 History Pen] 0800 Active Medications: Generic Name Dose Route Start Last Admin Trade Name Freq PRN Reason Stop Dose Admin Amlodipine Besylate 10 mg 04/15/18 10:00 Norvasc PO DAILY SADAF Enoxaparin Sodium 40 mg 04/15/18 10:00 Lovenox SUB-Q QDAY@1000 SADAF Famotidine 20 mg 04/14/18 14:00 04/14/18 14:59 Pepcid PO 20 mg QDAY SADAF Administration Sodium Chloride 1,000 mls @ 75 mls/hr 04/14/18 12:00 04/14/18 11:45 Nacl 0.9% 1000 Ml IV 75 mls/hr DIRECT SADAF Administration Ceftriaxone Sodium 2 gm in 100 mls @ 200 mls/hr 04/15/18 10:00 Rocephin/Ns 2 Gm/100 Ml IV Q24HR SADAF Insulin Human Lispro 0 unit 04/14/18 11:30 04/15/18 00:48 Humalog SUB-Q Not Given ACHS SADAF Protocol Morphine Sulfate 2 mg 04/14/18 10:40 04/14/18 12:32 Morphine IV 2 mg Q4H PRN Administration Pain, Moderate (4-6) Oxycodone/Acetaminophen 1 tab 04/14/18 10:40 04/15/18 04:25 Percocet 5/325 PO 1 tab Q6H PRN Administration Pain, Moderate (4-6) Sodium Bicarbonate 650 mg 04/14/18 14:00 04/14/18 20:31 Sodium Bicarbonate PO 650 mg TID SADAF Administration
[2018-04-15] MEDS: ROCEPHIN/NS 2 GM/100 ML 2 GM/100 ML BAG IV SCH (09:27)
[2018-04-15] MEDS: NORVASC PO SCH (09:27)
[2018-04-15] MEDS: LOVENOX SUB-Q SCH (09:27)
[2018-04-15] MEDS: PEPCID PO SCH (09:28)
[2018-04-15] MEDS: SODIUM BICARBONATE PO SCH ×3 (09:28→21:06)
[2018-04-15] MEDS ORDERED: LOVENOX SUB-Q SCH (10:00)
--- NOTE | 2018-04-15 10:24 | Progress Note ---
Assessment and Plan Acute Renal failure secondary to possible urine retention/obstruction vs AIN: Metabolic Acidosis: -Renal function reviewed. Serum creatinine trend down to 1.7 today on IVF and with albarran catheter in place -Baseline serum creatinine 1.0-1.2 -Ct of Abdomen and Pelvis showed- Small volume of fluid in abdomen and pelvis, scattered cysts. No Hydronephrosis. -Albarran present for urine retention -On IVF with NS@ 75 ml/hr -On Sodium Bicarbonate 650 mg po TID -Urine lytes reviewed -Avoid Nephrotoxic agents -Monitor I/O's -Obtain daily weights -Monitor renal function closely Urine Retention: Prostate Cancer: -S/P Prostatectomy on 04/04/[address] Subramanian -Albarran catheter placed -Urology onboard UTI: Leukocytosis: -On IV Rocephin -Urine culture- no growth -Blood cultures-pending Hypertension: -On Amlodipine 10 mg po daily -Continue on current regimen and adjust as needed Diabetes Mellitus: -On Insulin -As per primary Subjective Date of service: 04/15/18 Principal diagnosis: ARF, urine retention Interval history: Patient seen lying in bed. Awake and alert. Daughter at bedside. Objective - Vital Signs Vital signs: Vital Signs - 12hr 04/15/18 04/15/18 04/15/18 02:25 02:26 08:18 Temperature 98.6 F 98.2 F Pulse Rate 104 H 96 H Respiratory 20 20 Rate Blood Pressure 138/78 135/77 O2 Sat by Pulse 97 97 Oximetry 04/15/18 09:27 Temperature Pulse Rate 96 H Respiratory Rate Blood Pressure 135/77 O2 Sat by Pulse Oximetry - General Appearance General appearance: well-developed, appears stated age EENT: ATNC, PERRL, hearing intact, vision intact Neck: no JVD, supple Respiratory: Present: Decreased Breath Sounds Cardiology: regular, S1S2 Gastrointestinal: normoactive bowel sounds Integumentary: warm and dry Neurologic: alert and oriented x3 Musculoskeletal: other (No edema) Psychiatric: cooperative - Lab 04/15/18 03:32 04/15/18 03:32 Most recent lab results Calcium 8.2 mg/dL (8.4-10.2) L 04/15/18 03:32 Phosphorus 3.20 mg/dL (2.5-4.5) 04/15/18 03:32 Magnesium 2.30 mg/dL (1.7-2.3) 04/15/18 03:32 Urine Creatinine 122.7 mg/dL (0.1-20.0) H 04/14/18 16:00 Urine Sodium 68 mmol/L 04/14/18 16:00 Urine Total Protein 19 mg/dL (5-11.8) H 04/14/18 16:00 Medications & Allergies - Medications Allergies/Adverse Reactions: Allergies BEE STINGS Adverse Reaction (Uncoded 02/07/18 08:28) Shortness of Breath Home Medications: Home Medications Medication Instructions Recorded Confirmed Last Taken Type Empagliflozin [Jardiance] 25 mg PO DAILY 03/23/18 04/15/18 04/12/18 21:00 History Losartan Potassium 100 mg PO DAILY 03/23/18 04/14/18 04/07/18 08:00 History 100 mg amLODIPine [Norvasc] 10 mg PO DAILY 03/23/18 04/14/18 04/10/18 History 0800 metFORMIN XR [Glucophage XR] 500 mg PO DAILY 03/23/18 04/14/18 04/08/18 History 500mg Exenatide Microspheres [Bydureon 0.6 mg SQ QWEEK 04/14/18 04/14/18 04/14/18 17:34 History Pen] 0800 Active Medications: Generic Name Dose Route Start Last Admin Trade Name Freq PRN Reason Stop Dose Admin Amlodipine Besylate 10 mg 04/15/18 10:00 04/15/18 09:27 Norvasc PO 10 mg DAILY SADAF Administration Enoxaparin Sodium 40 mg 04/15/18 10:00 04/15/18 09:27 Lovenox SUB-Q 40 mg QDAY@1000 SADAF Administration Famotidine 20 mg 04/14/18 14:00 04/15/18 09:28 Pepcid PO 20 mg QDAY SADAF Administration Sodium Chloride 1,000 mls @ 75 mls/hr 04/14/18 12:00 04/14/18 11:45 Nacl 0.9% 1000 Ml IV 75 mls/hr DIRECT SADAF Administration Ceftriaxone Sodium 2 gm in 100 mls @ 200 mls/hr 04/15/18 10:00 04/15/18 09:27 Rocephin/Ns 2 Gm/100 Ml IV 200 mls/hr Q24HR SADAF Administration Insulin Human Lispro 0 unit 04/14/18 11:30 04/15/18 07:30 Humalog SUB-Q Not Given ACHS [facility] Protocol Morphine Sulfate 2 mg 04/14/18 10:40 04/14/18 12:32 Morphine IV 2 mg Q4H PRN Administration Pain, Moderate (4-6) Oxycodone/Acetaminophen 1 tab 04/14/18 10:40 04/15/18 09:29 Percocet 5/325 PO 1 tab Q6H PRN Administration Pain, Moderate (4-6) Sodium Bicarbonate 650 mg 04/14/18 14:00 04/15/18 09:28 Sodium Bicarbonate PO 650 mg TID SADAF Administration
--- NOTE | 2018-04-15 16:58 | Progress Note ---
Assessment and Plan 72 yo M with 1. abdominal pain s/p robotic prostatectomy 04/04/18 2. inability to urinate 3. LYUDMILA Plan: 1. Abdomen is benign. Will add stool softener 2. continue current diet 3. 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 albarran per uro 5. no general surgical intervention indicated Will s/o. Thank you, please call with questions. Subjective Date of service: 04/15/18 Narrative: Pt seen and examined. No complaints. Has been OOB and ambulating. Feels much better today. Tolerating a diet. + Flatus, No BM yet. Abdomen is a lot less tender. No n/v Objective Vital Signs - 12hr 04/15/18 04/15/18 04/15/18 08:18 09:27 10:00 Temperature 98.2 F Pulse Rate 96 H 96 H 69 Respiratory 20 Rate Blood Pressure 135/77 135/77 O2 Sat by Pulse 97 Oximetry 04/15/18 04/15/18 13:50 13:58 Temperature 98.4 F Pulse Rate 106 H Respiratory 20 Rate Blood Pressure 154/81 O2 Sat by Pulse 97 Oximetry - General physical appearance Narrative Exam: Gen: AAOx3. NAD CV: s1, s2+ resp: even and unlabored Abd: soft, mildly distended, mild aileen-incisional TTP. no r/r/g Ext: no c/c/e : albarran with clear yellow urine - Labs 04/15/18 03:32 04/15/18 03:32 Diabetes panel 04/15/18 04/15/18 Range/Units 03:32 03:32 Sodium 141 D (137-145) mmol/L Potassium 4.0 (3.6-5.0) mmol/L Chloride 106.3 (98-107) mmol/L Carbon Dioxide 16 L (22-30) mmol/L BUN 17 (9-20) mg/dL Creatinine 1.7 H (0.8-1.5) mg/dL Glucose 96 (75-100) mg/dL Hemoglobin A1c 7.3 H (4-6) % Calcium 8.2 L (8.4-10.2) mg/dL AST 15 (5-40) units/L ALT 12 (7-56) units/L Alkaline Phosphatase 59 (35-129) units/L Total Protein 6.3 (6.3-8.2) g/dL Albumin 3.3 L (3.9-5) g/dL Calcium panel 04/15/18 Range/Units 03:32 Calcium 8.2 L (8.4-10.2) mg/dL Phosphorus 3.20 (2.5-4.5) mg/dL Albumin 3.3 L (3.9-5) g/dL Pituitary panel 04/15/18 Range/Units 03:32 Sodium 141 D (137-145) mmol/L Potassium 4.0 (3.6-5.0) mmol/L Chloride 106.3 (98-107) mmol/L Carbon Dioxide 16 L (22-30) mmol/L BUN 17 (9-20) mg/dL Creatinine 1.7 H (0.8-1.5) mg/dL Glucose 96 (75-100) mg/dL Calcium 8.2 L (8.4-10.2) mg/dL Adrenal panel 04/15/18 Range/Units 03:32 Sodium 141 D (137-145) mmol/L Potassium 4.0 (3.6-5.0) mmol/L Chloride 106.3 (98-107) mmol/L Carbon Dioxide 16 L (22-30) mmol/L BUN 17 (9-20) mg/dL Creatinine 1.7 H (0.8-1.5) mg/dL Glucose 96 (75-100) mg/dL Calcium 8.2 L (8.4-10.2) mg/dL Total Bilirubin 0.60 (0.1-1.2) mg/dL AST 15 (5-40) units/L ALT 12 (7-56) units/L Alkaline Phosphatase 59 (35-129) units/L Total Protein 6.3 (6.3-8.2) g/dL Albumin 3.3 L (3.9-5) g/dL
[2018-04-15] MEDS: NACL 0.9% 1000 ML 1,000 ML IV SCH (17:09)
[2018-04-15] MEDS: COLACE PO SCH (21:07)
[2018-04-16 06:12] LABS: BUN/Creatinine Ratio 11; Blood Urea Nitrogen 11 mg/dL (9-20); Hemolysis Index 6
[2018-04-16] MEDS: SODIUM BICARBONATE PO SCH ×2 (07:51→13:44)
[2018-04-16] MEDS: HumaLOG SUB-Q SCH ×2 (07:51→12:30)
[2018-04-16] MEDS: NACL 0.9% 1000 ML 1,000 ML IV SCH (07:51)
[2018-04-16] MEDS: ROCEPHIN/NS 2 GM/100 ML 2 GM/100 ML BAG IV SCH (09:58)
[2018-04-16] MEDS: LOVENOX SUB-Q SCH (09:59)
[2018-04-16] MEDS: PEPCID PO SCH (09:59)
[2018-04-16] MEDS: COLACE PO SCH (09:59)
[2018-04-16] MEDS: NORVASC PO SCH (10:00)
--- NOTE | 2018-04-16 11:50 | Progress Note ---
Assessment and Plan Acute Renal failure secondary to possible urine retention vs AIN: Metabolic Acidosis: -Renal function reviewed, SCr level was 1.0 today, yesterday's SCr level was 1.7 -Ok to be d/c home from nephrology standpoint once medically cleared -Baseline serum creatinine 1.0-1.2 -CT Abdomen and Pelvis showed- Small volume of fluid in abdomen and pelvis, scattered cysts. No Hydronephrosis. -Albarran catheter placed for urine retention -On 0.9% NS infusion at 75 ml/hr -On Sodium Bicarbonate 650 mg po TID -Avoid Nephrotoxic agents -Intake= 1720 ml Output= 3300 ml (Net= -1580 ml) -Renal plan d/w Dr Leonardo Urine Retention: Prostate Cancer: -S/p Prostatectomy on 04/04/[address] Subramanian -Albarran catheter placed -Urology evaluated pt UTI: Leukocytosis: -On IV Rocephin -Follow cultures Essential Hypertension: -On Amlodipine 10 mg po daily -Adjust meds as needed Diabetes Mellitus Type 2 non-insulin dependent: -On Insulin -As per primary Subjective Date of service: 04/16/18 Principal diagnosis: ARF, urine retention Interval history: Pt seen in bed, states feels ok today, denies shortness of breath. Pt states his albarran catheter was leaking a little No yesterday, but stopped after nurse adjusted balloon in albarran. No family at bedside Objective - Vital Signs Vital signs: Vital Signs - 12hr 04/16/18 04/16/18 04/16/18 02:04 02:06 07:18 Temperature 98.6 F 98.9 F Pulse Rate 89 90 Pulse Rate [ Apical] Pulse Rate [ From Monitor] Respiratory 20 18 Rate Blood Pressure 135/78 Blood Pressure 119/67 [Right] O2 Sat by Pulse 96 98 Oximetry 04/16/18 04/16/18 07:59 10:00 Temperature Pulse Rate 90 Pulse Rate [ 88 Apical] Pulse Rate [ 88 From Monitor] Respiratory Rate Blood Pressure 135/78 Blood Pressure [Right] O2 Sat by Pulse Oximetry - General Appearance General appearance: well-developed EENT: ATNC Neck: no JVD Respiratory: Present: Clear to Ascultation Cardiology: regular, S1S2 Gastrointestinal: normoactive bowel sounds, no tenderness, other (: Albarran to gravity draining yellow urine) Integumentary: warm and dry Neurologic: alert and oriented x3 Musculoskeletal: other (no edema to BLE) Psychiatric: mood/affect appropriate, cooperative - Lab 04/15/18 03:32 04/16/18 05:19 Most recent lab results Calcium 8.0 mg/dL (8.4-10.2) L 04/16/18 05:19 Phosphorus 3.20 mg/dL (2.5-4.5) 04/15/18 03:32 Magnesium 2.30 mg/dL (1.7-2.3) 04/15/18 03:32 Urine Creatinine 122.7 mg/dL (0.1-20.0) H 04/14/18 16:00 Urine Sodium 68 mmol/L 04/14/18 16:00 Urine Total Protein 19 mg/dL (5-11.8) H 04/14/18 16:00 Medications & Allergies - Medications Allergies/Adverse Reactions: Allergies BEE STINGS Adverse Reaction (Uncoded 02/07/18 08:28) Shortness of Breath Home Medications: Home Medications Medication Instructions Recorded Confirmed Last Taken Type Empagliflozin [Jardiance] 25 mg PO DAILY 03/23/18 04/15/18 04/12/18 21:00 History Losartan Potassium 100 mg PO DAILY 03/23/18 04/14/18 04/07/18 08:00 History 100 mg amLODIPine [Norvasc] 10 mg PO DAILY 03/23/18 04/14/18 04/10/18 History 0800 metFORMIN XR [Glucophage XR] 500 mg PO DAILY 03/23/18 04/14/18 04/08/18 History 500mg Exenatide Microspheres [Bydureon 0.6 mg SQ QWEEK 04/14/18 04/14/18 04/14/18 17:34 History Pen] 0800 Active Medications: Generic Name Dose Route Start Last Admin Trade Name Freq PRN Reason Stop Dose Admin Amlodipine Besylate 10 mg 04/15/18 10:00 04/16/18 10:00 Norvasc PO 10 mg DAILY SADAF Administration Docusate Sodium 100 mg 04/15/18 22:00 04/16/18 09:59 Colace PO 100 mg BID SADAF Administration Enoxaparin Sodium 40 mg 04/15/18 10:00 04/16/18 09:59 Lovenox SUB-Q 40 mg QDAY@1000 SADAF Administration Famotidine 20 mg 04/14/18 14:00 04/16/18 09:59 Pepcid PO 20 mg QDAY SADAF Administration Sodium Chloride 1,000 mls @ 75 mls/hr 04/14/18 12:00 04/16/18 07:51 Nacl 0.9% 1000 Ml IV 75 mls/hr DIRECT SADAF Administration Ceftriaxone Sodium 2 gm in 100 mls @ 200 mls/hr 04/15/18 10:00 04/16/18 09:58 Rocephin/Ns 2 Gm/100 Ml IV 200 mls/hr Q24HR SADAF Administration Insulin Human Lispro 0 unit 04/14/18 11:30 04/16/18 07:51 Humalog SUB-Q Not Given ACHS [facility] Protocol Morphine Sulfate 2 mg 04/14/18 10:40 04/14/18 12:32 Morphine IV 2 mg Q4H PRN Administration Pain, Moderate (4-6) Oxycodone/Acetaminophen 1 tab 04/14/18 10:40 04/15/18 09:29 Percocet 5/325 PO 1 tab Q6H PRN Administration Pain, Moderate (4-6) Sodium Bicarbonate 650 mg 04/14/18 14:00 04/16/18 07:51 Sodium Bicarbonate PO 650 mg TID SADAF Administration
[2018-04-16 14:07] VITALS: BP 122/71
--- NOTE | 2018-04-16 14:22 | Discharge Summary ---
Providers - Providers Date of Admission: 04/14/18 09:23 Date of discharge: 04/16/18 Attending physician: ROXANA CASTRO 04/14/18 08:33 Consult to Physician [CONS] Urgent Comment: Dr. Subramanian notified @ 08:30- [facility] Consulting Provider: INESSA SUBRAMANIAN Physician Instructions: Reason For Exam: arf, s/p prostectomy 04/14/18 08:35 Consult to Physician [CONS] Urgent Comment: Dr. Kaplan notified @ 08:38- [facility] Consulting Provider: MILIND KAPLAN Physician Instructions: Reason For Exam: arf, s/p prostectomy 04/14/18 09:21 Consult to Physician [CONS] Urgent Comment: Shaila in office notified @ 0905- [facility] Consulting Provider: FRANCHESCA WILDER Physician Instructions: Reason For Exam: abd fluid, right shoulder pain s/p prostectomy Primary care physician: MATT POLO Hospitalization Reason for admission: urinary retention/urinary tract infection Condition: Stable Pertinent studies: CT abdomen and pelvis; small-volume abdominal and pelvic fluid may be infectious Standing and edema involving the distal small bowel: Within the pelvis most likely reactive Recent prostatectomy Hospital course: Very pleasant 72-year-old male patient with past medical history of diabetes mellitus , hypertension, kidney stones, prostate cancer s/p robotic prostatectomy performed on April [address] Subramanian was admitted through emergency room with abdominal pain, distention, and urinary retention Patient ,Received Albarran catheter with significant improvement, patient had acute kidney injury due to obstructive uropathy, nephrology evaluated improved Also had sepsis due to urinary tract infection, received empiric antibiotics, leukocytosis improved, symptoms resolved, Today patient is comfortable in no new complaints, vital signs stable Symptoms completely resolved, Cleared by nephrology and urology and surgery for discharge Follow-up as outpatient as needed, Patient is stable at discharge The patient will be discharged home with Albarran per urology Discharge diagnosis; --Bladder out let obstruction/urinary retention Continuous Albarran catheterization, urology evaluated, DC home with albarran F/U outpatient for further evaluation and management --Urinary tract infection; received IV Rocephin Discharge on oral Levaquin, cultures negative to date --Leukocytosis; secondary to sepsis due to UTI, resolved --Acute kidney injury; vasomotor nephropathy, obstructive uropathy Creatinine improved from 2.9-1.7 -1.1, Nephrology evaluated --Mild hyponatremia; resolved . --History of prostate cancer;s/p prostatectomy, follow urology --Hypertension; well controlled , continue current antihypertensives --Type 2 diabetes mellitus; SSC ADA diet and oral hypoglycemics Disposition: DC-01 TO HOME OR SELFCARE Time spent for discharge: 32 min Core Measure Documentation - Palliative Care Palliative Care/ Comfort Measures: Not Applicable - Core Measures Any of the following diagnoses?: none Exam - Constitutional Vitals: Temp Pulse Resp BP Pulse Ox 98.5 F 96 H 18 122/71 97 04/16/18 13:53 04/16/18 13:53 04/16/18 13:53 04/16/18 13:53 04/16/18 13:53 General appearance: Present: no acute distress, well-nourished - EENT Eyes: Present: PERRL, EOM intact - Neck Neck: Present: supple, normal ROM - Respiratory Respiratory effort: normal Respiratory: bilateral: diminished, negative: rales, rhonchi, wheezing - Cardiovascular Rhythm: regular Heart Sounds: Present: S1 & S2 - Extremities Extremities: no ischemia, No edema - Abdominal General gastrointestinal: Present: soft, non-tender, non-distended, normal bowel sounds - Integumentary Integumentary: Present: clear, warm - Musculoskeletal Musculoskeletal: strength equal bilaterally - Psychiatric Psychiatric: appropriate mood/affect, cooperative - Neurologic Neurologic: CNII-XII intact, moves all extremities Plan Activity: advance as tolerated Diet: diabetic Additional Instructions: Continue with Albarran catheter Follow up with: MATT POLO MD [Primary Care Provider] - 7 Days INESSA SUBRAMANIAN MD [Staff Physician] - 7 Days MILIND KAPLAN MD [Staff Physician] - 7 Days Prescriptions: levoFLOXacin [Levaquin] 750 mg PO QDAY #5 tablet oxyCODONE /ACETAMINOPHEN [Percocet 5/325 mg] 1 tab PO DAILY PRN #6 tablet PRN Reason: Pain, Moderate (4-6)
== END 2018-04-16 16:10 | disposition home or self-care (01) | DRG 871 ==
LOC: ED 05:58 → 2B-ACE 09:23
PROVIDERS: ADMIT Internal Medicine; ATTEND Internal Medicine
DX: A41.9 Sepsis, unspecified organism (principal); N17.0 Acute kidney failure with tubular necrosis; N39.0 Urinary tract infection, site not specified; E87.1 Hypo-osmolality and hyponatremia; E11.9 Type 2 diabetes mellitus without complications; I10 Essential (primary) hypertension; R33.9 Retention of urine, unspecified; N13.9 Obstructive and reflux uropathy, unspecified; K21.9 Gastro-esophageal reflux disease without esophagitis; M19.90 Unspecified osteoarthritis, unspecified site; Z90.79 Acquired absence of other genital organ(s); N32.0 Bladder-neck obstruction; Z87.442 Personal history of urinary calculi; Z91.030 Bee allergy status; Z79.899 Other long term (current) drug therapy; Z82.49 Family history of ischemic heart disease and other diseases of the circulatory system; Z85.46 Personal history of malignant neoplasm of prostate
CPT/HCPCS: 36415; 74176; 80048; 80053; 81001; 82570; 82962; 83036; 83735; 84100; 84156; 84300; 85025; 87040; 87086; 87116; 89050; G0378; J0696; J1170; J1650; J1815; J2270; J2405; J7030

== ENCOUNTER 2018-06-07 12:27 | Outpatient (CLI) | payer MEDICARE, OTHER ==
[2018-06-07 12:58] LABS: Hematocrit 42.8 % (35.5-45.6); Hemoglobin 14.5 gm/dl (11.8-15.2); Mean Corpuscular HGB Conc 34 % (32-34); Mean Corpuscular Volume 83 fl (84-94); Platelet Count 237 K/mm3 (140-440); Red Blood Count 5.15 M/mm3 (3.65-5.03); Red Cell Distribution Width 14.6 % (13.2-15.2)
[2018-06-07 13:01] LABS: Bilirubin,Urine NEG (Negative); Blood,Urine MOD (Negative); Color,Urine Yellow (Yellow); Protein,Urine <15 mg/dL mg/dL (Negative); Urobilinogen,Urine < 2.0 mg/dL (<2.0)
[2018-06-07 13:17] LABS: Creatinine,Urine 122.9 mg/dL (0.1-20.0); Protein/Creatinine Ratio,Urine 0.2
[2018-06-07 13:23] LABS: BUN/Creatinine Ratio 12; Blood Urea Nitrogen 12 mg/dL (9-20); Hemolysis Index 7
== END 2018-06-07 12:28 | disposition home or self-care (01) ==
LOC: LAB 12:27
PROVIDERS: ATTEND Internal Medicine Nephrology
DX: E11.22 Type 2 diabetes mellitus with diabetic chronic kidney disease (principal); I12.9 Hypertensive chronic kidney disease with stage 1 through stage 4 chronic kidney disease, or unspecified chronic kidney disease; N18.9 Chronic kidney disease, unspecified; N25.81 Secondary hyperparathyroidism of renal origin; K21.9 Gastro-esophageal reflux disease without esophagitis; Z90.89 Acquired absence of other organs; Z87.891 Personal history of nicotine dependence
CPT/HCPCS: 36415; 80048; 81001; 82306; 82570; 83970; 84100; 84156; 85027

== ENCOUNTER 2018-09-21 10:31 | Outpatient (CLI) | payer MEDICARE, OTHER ==
[2018-09-21 11:07] LABS: Blood Urea Nitrogen 13 mg/dL (9-20)
== END 2018-09-21 10:32 | disposition home or self-care (01) ==
LOC: LAB 10:31
PROVIDERS: ATTEND Urology
DX: C61 Malignant neoplasm of prostate (principal); I10 Essential (primary) hypertension; E11.9 Type 2 diabetes mellitus without complications; K21.9 Gastro-esophageal reflux disease without esophagitis; Z90.89 Acquired absence of other organs
CPT/HCPCS: 36415; 82565; 83036; 84520

== ENCOUNTER 2018-09-23 13:04 | Outpatient (CLI) | payer MEDICARE, OTHER ==
--- NOTE | 2018-09-23 14:38 | Cat Scan Report ---
CT ABDOMEN AND PELVIS WITHOUT CONTRAST HISTORY: C61/MALIGNANT NEOPLASM OF PROSTATE COMPARISON: 04/14/2018 TECHNIQUE: Axial CT images were obtained through the abdomen and pelvis without IV contrast. Sagittal and coronal reformatted images. All CT scans at this location are performed using CT dose reduction for ALARA by means of automated exposure control. FINDINGS: CT ABDOMEN: Lung Bases: Calcified granuloma is noted in the left lower lobe. Normal heart size. Liver: No significant abnormality. Biliary: No significant abnormality. Spleen: No significant abnormality. Unenlarged. Pancreas: No significant abnormality. Adrenals: No significant abnormality. Kidneys: Bilateral renal cysts are identified. There are 2 cysts in the right kidney measuring up to 4 cm. A large exophytic cyst from the inferior pole of the left kidney measures 9.6 cm. No evidence f or nephrolithiasis, mass or hydronephrosis. Lymphatics: No lymphadenopathy. Vasculature: No significant abnormality. Bowel/Peritoneum: No significant abnormality. No free air. No free fluid. CT PELVIS: : Prostatectomy changes are suspected. The bladder and distal ureters are unremarkable. Osseous Structures: Mild multilevel degenerative change in the spine. No fracture or suspicious bony lesion. Additional Findings: None IMPRESSION: No evidence for metastatic disease to the abdomen or pelvis. Bilateral renal cysts. Surgical changes as described. Signer Name: Zach Melo Jr, MD Signed: 09/23/2018 2:34 PM Workstation Name: [id number]
== END 2018-09-23 13:05 | disposition home or self-care (01) ==
LOC: CT 13:04
PROVIDERS: ATTEND Urology
DX: N28.1 Cyst of kidney, acquired (principal); C61 Malignant neoplasm of prostate; M47.819 Spondylosis without myelopathy or radiculopathy, site unspecified; E11.9 Type 2 diabetes mellitus without complications; I10 Essential (primary) hypertension; Z90.89 Acquired absence of other organs
CPT/HCPCS: 74176

== ENCOUNTER 2018-10-13 10:56 | Outpatient (CLI) | payer MEDICARE, OTHER ==
[2018-10-13 11:17] LABS: Hematocrit 43.2 % (35.5-45.6); Hemoglobin 14.9 gm/dl (11.8-15.2); Mean Corpuscular HGB Conc 34 % (32-34); Mean Corpuscular Volume 82 fl (84-94); Platelet Count 200 K/mm3 (140-440); Red Blood Count 5.28 M/mm3 (3.65-5.03); Red Cell Distribution Width 15.1 % (13.2-15.2)
[2018-10-13 11:22] LABS: Bilirubin,Urine NEG (Negative); Blood,Urine NEG (Negative); Color,Urine Yellow (Yellow); Protein,Urine <15 mg/dL mg/dL (Negative); Urobilinogen,Urine < 2.0 mg/dL (<2.0); WBC,Urine < 1.0 /HPF (0.0-6.0)
[2018-10-13 11:29] LABS: Creatinine,Urine 84.7 mg/dL (0.1-20.0); Protein/Creatinine Ratio,Urine 0.09
[2018-10-13 11:43] LABS: BUN/Creatinine Ratio 15; Blood Urea Nitrogen 15 mg/dL (9-20); Calcium 8.7 mg/dL (8.4-10.2); Hemolysis Index 5
== END 2018-10-13 10:57 | disposition home or self-care (01) ==
LOC: LAB 10:56
PROVIDERS: ATTEND Internal Medicine Nephrology
DX: I12.9 Hypertensive chronic kidney disease with stage 1 through stage 4 chronic kidney disease, or unspecified chronic kidney disease (principal); E11.22 Type 2 diabetes mellitus with diabetic chronic kidney disease; N18.3 Chronic kidney disease, stage 3 (moderate)
CPT/HCPCS: 36415; 80048; 81001; 82570; 84156; 85027

== ENCOUNTER 2019-02-20 10:52 | Outpatient (CLI) | payer MEDICARE, OTHER | END 2019-02-20 10:53 | disposition home or self-care (01) | LOC: LAB 10:52 | PROVIDERS: ATTEND Internal Medicine Nephrology | DX: I12.9 Hypertensive chronic kidney disease with stage 1 through stage 4 chronic kidney disease, or unspecified chronic kidney disease (principal); E11.22 Type 2 diabetes mellitus with diabetic chronic kidney disease; N18.3 Chronic kidney disease, stage 3 (moderate); N25.81 Secondary hyperparathyroidism of renal origin; R82.998 Other abnormal findings in urine; Z91.030 Bee allergy status | CPT/HCPCS: 36415; 80048; 81001; 82306; 82570; 84156; 85027; 87086 ==

== ENCOUNTER 2019-06-12 09:11 | Outpatient (CLI) | payer MEDICARE, OTHER ==
[2019-06-12 09:52] LABS: Bacteria,Urine 1+ /HPF (Negative); Bilirubin,Urine NEG (Negative); Blood,Urine NEG (Negative); Color,Urine Straw (Yellow); Protein,Urine <15 mg/dL mg/dL (Negative); Urobilinogen,Urine < 2.0 mg/dL (<2.0)
[2019-06-12 10:00] LABS: BUN/Creatinine Ratio 14; Blood Urea Nitrogen 14 mg/dL (9-20); Hemolysis Index 11
[2019-06-12 10:02] LABS: Hematocrit 43.8 % (35.5-45.6); Hemoglobin 14.6 gm/dl (11.8-15.2); Mean Corpuscular HGB Conc 33 % (32-34); Mean Corpuscular Volume 84 fl (84-94); Platelet Count 173 K/mm3 (140-440); Red Blood Count 5.18 M/mm3 (3.65-5.03); Red Cell Distribution Width 13.7 % (13.2-15.2)
[2019-06-12 13:19] LABS: Creatinine,Urine 71.3 mg/dL (0.1-20.0); Protein/Creatinine Ratio,Urine 0.11
== END 2019-06-12 09:12 | disposition home or self-care (01) ==
LOC: LAB 09:11
PROVIDERS: ATTEND Internal Medicine Nephrology
DX: N18.3 Chronic kidney disease, stage 3 (moderate) (principal)
CPT/HCPCS: 36415; 80048; 81001; 82570; 84156; 85027; 87076; 87086; 87186

== ENCOUNTER 2019-10-18 11:19 | Outpatient (CLI) | payer MEDICARE, OTHER ==
[2019-10-18 11:54] LABS: Eosinophils # (Auto) 0.1 K/mm3 (0.0-0.4); Eosinophils % (Auto) 1.4 % (0.0-4.3); Hematocrit 44.1 % (35.5-45.6); Hemoglobin 14.9 gm/dl (11.8-15.2); Lymphocytes # (Auto) 1.7 K/mm3 (1.2-5.4); Lymphocytes % (Auto) 43.3 % (13.4-35.0); Mean Corpuscular HGB Conc 34 % (32-34); Mean Corpuscular Volume 85 fl (84-94); Monocytes # (Auto) 0.3 K/mm3 (0.0-0.8); Monocytes % (Auto) 7.3 % (0.0-7.3); Platelet Count 173 K/mm3 (140-440); Red Blood Count 5.18 M/mm3 (3.65-5.03)
[2019-10-18 12:05] LABS: Bacteria,Urine 1+ /HPF (Negative); Bilirubin,Urine NEG (Negative); Blood,Urine NEG (Negative); Color,Urine Straw (Yellow); Protein,Urine <15 mg/dL mg/dL (Negative); RBC,Urine < 1.0 /HPF (0.0-6.0); Urobilinogen,Urine < 2.0 mg/dL (<2.0)
[2019-10-18 12:12] LABS: BUN/Creatinine Ratio 12; Blood Urea Nitrogen 16 mg/dL (9-20); Calcium 8.9 mg/dL (8.4-10.2); Hemolysis Index 4
[2019-10-18 15:32] LABS: Creatinine,Urine 48.4 mg/dL (0.1-20.0); Protein/Creatinine Ratio,Urine 0.1
== END 2019-10-18 11:20 | disposition home or self-care (01) ==
LOC: LAB 11:19
PROVIDERS: ATTEND Internal Medicine Nephrology
DX: N18.3 Chronic kidney disease, stage 3 (moderate) (principal)
CPT/HCPCS: 36415; 80048; 81001; 82570; 84156; 85025

== ENCOUNTER 2020-04-15 10:42 | Outpatient (CLI) | payer MEDICARE, OTHER ==
[2020-04-15 11:13] LABS: Basophils % (Auto) 0.3 % (0.0-1.8); Eosinophils # (Auto) 0.1 K/mm3 (0.0-0.4); Eosinophils % (Auto) 1.7 % (0.0-4.3); Hematocrit 45.2 % (35.5-45.6); Hemoglobin 14.9 gm/dl (11.8-15.2); Lymphocytes # (Auto) 1.9 K/mm3 (1.2-5.4); Lymphocytes % (Auto) 45.1 % (13.4-35.0); Mean Corpuscular HGB Conc 33 % (32-34); Mean Corpuscular Volume 86 fl (84-94); Monocytes # (Auto) 0.4 K/mm3 (0.0-0.8); Monocytes % (Auto) 8.6 % (0.0-7.3); Platelet Count 152 K/mm3 (140-440); Red Blood Count 5.27 M/mm3 (3.65-5.03); Red Cell Distribution Width 13.1 % (13.2-15.2)
[2020-04-15 11:14] LABS: Bilirubin,Urine NEG (Negative); Blood,Urine NEG (Negative); Color,Urine Yellow (Yellow); Protein,Urine <15 mg/dL mg/dL (Negative); Urobilinogen,Urine < 2.0 mg/dL (<2.0)
[2020-04-15 11:30] LABS: WBC,Urine < 1.0 /HPF (0.0-6.0)
[2020-04-15 11:31] LABS: Creatinine,Urine 90.7 mg/dL (0.1-20.0); Protein/Creatinine Ratio,Urine 0.08
[2020-04-15 11:32] LABS: BUN/Creatinine Ratio 14; Blood Urea Nitrogen 15 mg/dL (9-20); Calcium 8.5 mg/dL (8.4-10.2); Hemolysis Index 7
== END 2020-04-15 10:43 | disposition home or self-care (01) ==
LOC: LAB 10:42
PROVIDERS: ATTEND Internal Medicine Nephrology
DX: N18.30 Chronic kidney disease, stage 3 unspecified (principal)
CPT/HCPCS: 36415; 80048; 81001; 82570; 83970; 84100; 84156; 85025

== ENCOUNTER 2020-10-14 10:08 | Outpatient (CLI) | payer MEDICARE, OTHER ==
[2020-10-14 10:38] LABS: Basophils % (Auto) 0.9 % (0.0-1.8); Bilirubin,Urine NEG (Negative); Blood,Urine NEG (Negative); Color,Urine Yellow (Yellow); Eosinophils # (Auto) 0.1 K/mm3 (0.0-0.4); Eosinophils % (Auto) 1.3 % (0.0-4.3); Hematocrit 44.9 % (35.5-45.6); Lymphocytes # (Auto) 1.8 K/mm3 (1.2-5.4); Lymphocytes % (Auto) 47.1 % (13.4-35.0); Mean Corpuscular HGB Conc 33 % (32-34); Mean Corpuscular Volume 84 fl (84-94); Monocytes # (Auto) 0.3 K/mm3 (0.0-0.8); Monocytes % (Auto) 8.7 % (0.0-7.3); Mucus,Urine FEW /HPF; Platelet Count 173 K/mm3 (140-440); Protein,Urine <15 mg/dL mg/dL (Negative); Red Blood Count 5.33 M/mm3 (3.65-5.03); Red Cell Distribution Width 13.8 % (13.2-15.2); Urobilinogen,Urine < 2.0 mg/dL (<2.0)
[2020-10-14 11:20] LABS: BUN/Creatinine Ratio 12; Blood Urea Nitrogen 12 mg/dL (9-20); Calcium 9.3 mg/dL (8.4-10.2); Hemolysis Index 3
[2020-10-14 12:12] LABS: Creatinine,Urine 92.7 mg/dL (0.1-20.0); Protein/Creatinine Ratio,Urine 0.1
[2020-10-17 12:08] LABS: Vitamin D, 25-OH, D2 <4 ng/mL
== END 2020-10-14 10:09 | disposition home or self-care (01) ==
LOC: LAB 10:08
PROVIDERS: ATTEND Internal Medicine Nephrology
DX: N18.30 Chronic kidney disease, stage 3 unspecified (principal); N25.81 Secondary hyperparathyroidism of renal origin
CPT/HCPCS: 36415; 80048; 81001; 82306; 82570; 84156; 85025

== ENCOUNTER 2021-04-14 09:11 | Outpatient (CLI) | payer MEDICARE, OTHER ==
[2021-04-14 09:46] LABS: Basophils % (Auto) 1.3 % (0.0-1.8); Eosinophils # (Auto) 0.1 K/mm3 (0.0-0.4); Eosinophils % (Auto) 1.5 % (0.0-4.3); Hematocrit 44.8 % (35.5-45.6); Hemoglobin 14.2 gm/dl (11.8-15.2); Lymphocytes # (Auto) 1.9 K/mm3 (1.2-5.4); Lymphocytes % (Auto) 49.5 % (13.4-35.0); Mean Corpuscular HGB Conc 32 % (32-34); Mean Corpuscular Volume 85 fl (84-94); Monocytes # (Auto) 0.3 K/mm3 (0.0-0.8); Monocytes % (Auto) 8.8 % (0.0-7.3); Platelet Count 163 K/mm3 (140-440); Red Blood Count 5.28 M/mm3 (3.65-5.03); Red Cell Distribution Width 13.6 % (13.2-15.2)
[2021-04-14 09:51] LABS: BUN/Creatinine Ratio 14; Blood Urea Nitrogen 17 mg/dL (9-20); Calcium 8.7 mg/dL (8.4-10.2); Hemolysis Index 8
[2021-04-14 09:59] LABS: Bilirubin,Urine NEG (Negative); Blood,Urine NEG (Negative); Color,Urine Yellow (Yellow); Protein,Urine <15 mg/dL mg/dL (Negative); RBC,Urine < 1.0 /HPF (0.0-6.0); Urobilinogen,Urine < 2.0 mg/dL (<2.0); WBC,Urine < 1.0 /HPF (0.0-6.0)
[2021-04-14 14:51] LABS: Creatinine,Urine 93.1 mg/dL (0.1-20.0); Protein/Creatinine Ratio,Urine 0.1
== END 2021-04-14 09:12 | disposition home or self-care (01) ==
LOC: LAB 09:11
PROVIDERS: ATTEND Internal Medicine Nephrology
DX: N18.30 Chronic kidney disease, stage 3 unspecified (principal)
CPT/HCPCS: 36415; 80048; 81001; 82570; 84156; 85025

== ENCOUNTER 2021-10-13 09:57 | Outpatient (CLI) | payer MEDICARE, OTHER ==
[2021-10-13 11:08] LABS: Hematocrit 44.5 % (35.5-45.6); Hemoglobin 14.9 gm/dl (11.8-15.2); Mean Corpuscular HGB Conc 34 % (32-34); Mean Corpuscular Volume 85 fl (84-94); Platelet Count 140 K/mm3 (140-440); Red Blood Count 5.27 M/mm3 (3.65-5.03); Red Cell Distribution Width 13.6 % (13.2-15.2)
[2021-10-13 11:17] LABS: BUN/Creatinine Ratio 14; Blood Urea Nitrogen 15 mg/dL (9-20); Calcium 9.2 mg/dL (8.4-10.2); Hemolysis Index 16
[2021-10-13 13:20] LABS: Mucus,Urine FEW /HPF
[2021-10-13 14:49] LABS: Bilirubin,Urine Negative (Negative); Blood,Urine Negative (Negative); Color,Urine Yellow (Yellow)
[2021-10-13 14:50] LABS: Protein,Urine <15 mg/dL mg/dL (Negative)
== END 2021-10-13 09:58 | disposition home or self-care (01) ==
LOC: LAB 09:57
PROVIDERS: ATTEND Internal Medicine Nephrology
DX: N18.30 Chronic kidney disease, stage 3 unspecified (principal)
CPT/HCPCS: 36415; 80048; 81001; 83970; 84100; 85027